=== PATIENT | female | born 2005 | race Caucasian/White ===

== ENCOUNTER 2023-02-08 12:03 | Outpatient (CLI) | payer OTHER, SELFPAY ==
--- NOTE | ~2023-02-08 | US_ITS ---
EXAMINATION: US pelvic complete w TV DATE: 02/08/2023 12:56 INDICATION: Right lower quadrant abdominal pain. TECHNIQUE: Multiple transabdominal and transvaginal sonographic images of the pelvis were obtained. COMPARISON: None. FINDINGS: TRANSABDOMINAL ULTRASOUND: The uterus measures 6.6 x 4.1 x 4.4 cm. There is no free fluid in the pelvis. TRANSVAGINAL ULTRASOUND: The endometrial complex measures 13 mm in thickness. The right ovary is not visualized. The left ovar y measures 3.0 x 1.4 x 1.6 cm. IMPRESSION: 1. Right ovary not visualized. 2. Normal uterus and left ovary. Reviewed, dictated and finalized at location A.
== END 2023-02-08 12:04 | disposition home or self-care (01) ==
PROVIDERS: PCP Family Medicine; Visit Provider Obstetrics & Gynecology Gynecology
DX: R10.31 Right lower quadrant pain (principal)
CPT/HCPCS: 76830; 76856

== ENCOUNTER 2023-02-08 18:13 | Emergency (ER) | payer OTHER, SELFPAY ==
--- NOTE | ~2023-02-08 | CT_ITS ---
EXAMINATION: CT abdomen pelvis w con DATE: 02/08/2023 19:50 INDICATION: right lower quadrant pain TECHNIQUE: Computed tomography (CT) of the abdomen and pelvis was performed with 100 mL Omnipaque-350 intravenous contrast. Automated exposure control and iterative reconstruction technique were employe d. The dose-length product was 1570.00 mGy-cm. COMPARISON: None. FINDINGS: Lower thorax: Unremarkable Liver: Diffuse fatty infiltration Biliary/Gallbladder: Gallbladder is normal. No bile duct dilation. Pancreas: No mass or duct dilation. Spleen: Normal. Adrenals:No mass. Kidneys: No mass, stone, or hydronephrosis. GI tract: Mild distal esophageal wall edema. No small or large bowel dilation. The appendix is dilate d up to 10 mm, without surrounding inflammatory change Mesentery/Peritoneum: No ascites, mass, or free air. Retroperitoneum: No mass. Pelvis: Empty urinary bladder. Normal uterus. control device in the vaginal cuff. Normal bilate ral ovaries.. Soft Tissues: Soft tissues and body wall unremarkable. Bones: No acute osseous finding. IMPRESSION: Mild esophagitis. Hepatic steatosis. Dilated appendix, without surrounding inflammatory change. This appearance may be normal for this pat ient or represent mild/early acute appendicitis. Otherwise, no acute abdominopelvic process detected. Reviewed, dictated and finalized at location K. IMPRESSION: Mild esophagitis. Hepatic steatosis. Dilated appendix, without surrounding inflammatory change. This appearance may be normal for this patient or represent mild/early acute appendicitis. Otherwise, no acute abdominopelvic process detected.
[2023-02-08 18:15] VITALS: BP 137/84; PULSE 98; RESP 17; TEMP 36.5; O2SAT 99
[2023-02-08 18:40] LABS: Basophils Percent Auto 0.4 % (0.2-1.2); Eosinophils Absolute Auto 0.1 K/mm3 (0-0.3); Eosinophils Percent Auto 0.9 % (0-4.4); Hemoglobin 14.5 g/dL (12.0-15.0); Immature Granulocyte Absolute 0.03 K/mm3 (0.00-0.031); Immature Granulocyte Percent A 0.3 % (0-0.5); Lymphocytes Absolute Auto 2.56 K/mm3 (0.9-3.2); Lymphocytes Percent Auto 26.4 % (18.3-44.2); Mean Corpuscular Hemoglobin 28.7 pg (26-34); Monocytes Absolute Auto 0.6 K/mm3 (0.1-0.6); Monocytes Percent Auto 6.1 % (2.6-8.5); Neutrophils Absolute Auto 6.4 K/mm3 (1.3-6.7); Neutrophils Percent Auto 65.9 % (45.5-73.1); Platelet Count Result 297 k/mm3 (150-375); Red Blood Count 5.06 M/mm3 (4.2-5.4); Red Cell Distribution Width 12.5 % (11.5-14.5); White Blood Count 9.7 K/mm3 (4.5-10.0)
[2023-02-08 18:51] LABS: Alanine Aminotransferase 31 U/L (6-35); Albumin Level 4.5 g/dL (3.7-5.6); Alkaline Phosphatase 69 U/L (45-116); Anion Gap 6 mmol/L (8-16); Aspartate Amino Transferase 31 U/L (14-36); Bilirubin,Total 0.4 mg/dL (0.2-1.3); Blood Urea Nitrogen 11 mg/dL (8-21); Calcium 9.2 mg/dL (8.9-10.7); Carbon Dioxide 25 mmol/L (22-30); Chloride 106 mmol/L (98-107); Estimated CRCL calculation 124 ml/min; Estimated Glomerular Filt Rate > 60; Glucose 90 mg/dL (65-110); Lipase 63 U/L (23-300); Sodium 137 mmol/L (134-143)
[2023-02-08 20:18] LABS: Appearance Urine Clear (Clear); Bacteria Urine None Seen /hpf; Bilirubin Urine Negative (Negative); Blood Urine Negative (Negative); Color Urine Yellow (Yellow); Glucose Urine UA Negative (Negative); Ketones Urine Trace mg/dL (Negative); Leukocyte Esterase Ur Negative LEU/UL (Negative); Nitrate Urine Negative (Negative); Non Pathogenic Casts 0-2; Protein Urine Trace mg/dL (Negative); Specific Grav Ur 1.028 (1.001-1.035); Squamous Epithelial Cell Urine Few /hpf (Few); WBC Urine 0-5 /hpf
[2023-02-08 20:23] LABS: Add Urine Microscopic? YES
--- NOTE | 2023-02-08 22:37 | ED.GENADULT ---
HPI - General Adult General Chief complaint: Abdominal Pain Stated complaint: RLQ abdominal pain Time Seen by Provider: 02/08/23 19:16 History of Present Illness HPI narrative: Patient is a 17-year-old female who presents the emergency department with chief complaint of right lower quadrant abdominal pain. Patient reports that she was seen by her CANAL TENDER today and had an ultrasound done that was unable to visualize the right ovary. The patient was sent to the emergency department to evaluate for possible appendicitis as she was having right lower quadrant pain. Patient denies fever denies anorexia reports no pain with getting bumps in her vehicle. Related Data Allergies Allergy/AdvReac Type Severity Reaction Status Date / Time No Known Allergies Allergy Unverified 02/08/23 18:13 Review of Systems Review of Systems: A 10 system review of systems was completed on the patient and is negative except for what is stated in the HPI. Nursing and ancillary documentation was reviewed. Exam Narrative: GENERAL: Well-appearing, well-nourished, and in no acute distress. HEAD: Normocephalic, atraumatic. EYES: PERRLA and EOMI. ENT: Nares clear, no rhinorrhea or epistaxis. Mucous membranes moist. NECK: Supple. CHEST: Clear to auscultation. No respiratory distress. HEART: Regular rate and rhythm. No murmur heard. Normal peripheral pulses. ABDOMEN: Soft, mild tenderness to palpation in the right lower quadrant, nondistended, normal active bowel sounds. EXTREMITIES: Normal range of motion. No edema. SKIN: Warm, dry, no rash. NEURO: No focal deficits. Alert and oriented x3. PSYCH: Normal mood and affect. Course Vital Signs Vital signs: Vital Signs Temperature 36.5 C 02/08/23 18:15 Pulse Rate 98 02/08/23 18:15 Respiratory Rate 17 02/08/23 18:15 Blood Pressure 137/84 02/08/23 18:15 Pulse Oximetry 99 02/08/23 18:15 Oxygen Delivery Room Air 02/08/23 18:15 Temperature 36.5 C 02/08/23 18:15 Pulse Rate 98 02/08/23 18:15 Respiratory Rate 17 02/08/23 18:15 Blood Pressure 137/84 02/08/23 18:15 Pulse Oximetry 99 02/08/23 18:15 Oxygen Delivery Room Air 02/08/23 18:15 Medical Decision Making MDM Narrative Medical decision making narrative: Differential diagnosis includes appendicitis, ovarian cyst, generalized abdominal pain Laboratory studies were obtained which showed a normal set of electrolytes CBC was within normal limits urinalysis showed evidence of UTI CT scan showed a slightly enlarged appendix without secondary findings of appendicitis Case was discussed with Dr. Adams who is on-call for general surgery who recommended starting the patient on Augmentin and having the patient return to the emergency department if her pain worsens Vital Signs Vital Signs: Vital Signs Temperature 36.5 C 02/08/23 18:15 Pulse Rate 98 02/08/23 18:15 Respiratory Rate 17 02/08/23 18:15 Blood Pressure 137/84 02/08/23 18:15 Pulse Oximetry 99 02/08/23 18:15 Oxygen Delivery Room Air 02/08/23 18:15 Temperature 36.5 C 02/08/23 18:15 Pulse Rate 98 02/08/23 18:15 Respiratory Rate 17 02/08/23 18:15 Blood Pressure 137/84 02/08/23 18:15 Pulse Oximetry 99 02/08/23 18:15 Oxygen Delivery Room Air 02/08/23 18:15 Lab Data 02/08/23 18:24 02/08/23 18:24 Labs: Lab Results 02/08/23 02/08/23 Range/Units 18:24 19:35 WBC 9.7 (4.5-10.0) K/mm3 RBC 5.06 (4.2-5.4) M/mm3 Hgb 14.5 (12.0-15.0) g/dL Hct 44.0 (37.0-47.0) % MCV 87.0 (80-100) fl MCH 28.7 (26-34) pg MCHC 33.0 (32-36) g/dl RDW 12.5 (11.5-14.5) % Plt Count 297 (150-375) k/mm3 MPV 11.0 H (7.4-10.4) fl Immature Gran % (Auto) 0.3 (0-0.5) % Neut % (Auto) 65.9 (45.5-73.1) % Lymph % (Auto) 26.4 (18.3-44.2) % [place] % (Auto) 6.1 (2.6-8.5) % Eos % (Auto) 0.9 (0-4.4) % Baso % (Auto) 0.4 (0.2-1.2) % Lymph # (Auto)
== END 2023-02-08 23:18 | disposition home or self-care (01) ==
PROVIDERS: Emergency Medicine; Emergency Provider Emergency Medicine; PCP Family Medicine
DX: R10.31 Right lower quadrant pain (principal)
CPT/HCPCS: 36415; 74177; 76830; 76856; 80053; 81001; 81025; 83690; 85025; 99284; Q9967

== ENCOUNTER 2023-05-10 15:00 | Outpatient (RCR) | payer OTHER, SELFPAY ==
--- NOTE | 2023-03-07 14:33 | OPREHPOC ---
Outpatient Therapy Plan of Care This is a Multidisciplinary Plan of Care that may contain components documented by all disciplines (PT, OT, and ST.) PT Problem 1 PT Problem #1 Knowledge Deficit PT Goal 1 Goal 1. Patient will perform independent HEP Target Visit 5 PT Problem 2 PT Problem #2 Pain PT Goal 1 Goal 1. Patient will tolerate 1 finger circumferential pelvic floor stretch with pain no higher than 3/10 to allow for pap smear, ultrasound, and other medical management Target Visit 5 PT Problem 3 PT Problem #3 Impaired Functional ADLs PT Goal 1 Goal 1. Patient able to attend class and work with pain no higher than 4/10 Target Visit 5
--- NOTE | 2023-03-07 14:33 | PTOPEVAL1 ---
Assessment and note entered by Susan Montgomery DPT Evaluation Information Assessment Status Evaluation Subjective Information Pt reports prior pelvic floor PT. Reports her back is hurting and has a lot of pelvic pain. Significant difficulty tolerating tampons or vaginal ultrasound. Highest pain recently 9/10 and lowest 5/10. Pt voids 4 times a day, maybe 1 time at night. Incontinence almost every day, a few drops at a time but unsure what causes it. Denies pain with urination. Sometimes has trouble initiating urine stream. BM usually one time a day without pain. Pt has never been . When pain is high she has trouble even walking, unable to use tampons at her normal amount before and has had trouble keeping her nuva ring in. 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 No return to MD scheduled. Patient goal: not be in constant pain. Diagnosed with PCOS. Reported Pain Level Pain Score 6: Self Report Assessment PT Clinical Summary The patient is presenting to skilled therapy with a significant history of pelvic pain. She presents with decreased core and hip strength, and increased/painful pelvic floor muscle tone which are contributing to her pain and difficulty tolerating pelvic exams and tampon use and attending class and work. She will highly benefit from therapy to address these impairments in order to reduce pain and dysfunction. Plan of Care Interventions Electrical Stimulation,Gait Training,Hot Pack/Cold Pack,Manual Therapy,Neuro Re-education,Patient/ Caregiver Education,Therapeutic Activities, Therapeutic Exercise PT Services Indicated Yes Treatment Frequency and 1 visit a week for 4 visits Duration These treatments will address the objective and functional deficits as defined above. The patient will be advanced safely and appropriately in order for the patient to progress towards his/her prior level of function. Additional exercises will be introduced and as well as a comprehensive home exercise program upon discharge, if needed, ?to ensure carryover of functional gains achieved in the clinic. This treatment plan has been reviewed and agreement upon by the patient.
--- NOTE | 2023-03-19 08:51 | PCPTNOTE ---
Patient's appointment on 03/15/23 was canceled due to therapist being out of the office.
--- NOTE | 2023-04-04 13:54 | OPREHPOC ---
Outpatient Therapy Plan of Care This is a Multidisciplinary Plan of Care that may contain components documented by all disciplines (PT, OT, and ST.) PT Problem 1 PT Problem #1 Knowledge Deficit PT Goal 1 Goal 1. Patient will perform independent HEP Target Visit 9 Progress Partially Met PT Problem 2 PT Problem #2 Pain PT Goal 1 Goal 1. Patient will tolerate 1 finger circumferential pelvic floor stretch with pain no higher than 3/10 to allow for pap smear, ultrasound, and other medical management Target Visit 9 Progress Partially Met PT Problem 3 PT Problem #3 Impaired Functional ADLs PT Goal 1 Goal 1. Patient able to attend class and work with pain no higher than 4/10 Target Visit 9 Progress Partially Met
--- NOTE | 2023-04-04 13:54 | PTOPPROG ---
Assessment and note entered by Susan Montgomery DPT Evaluation Information Assessment Status Progress Subjective Information Pt reports she is noticing some improvements in her pain, her hips and back feel better especially with walking. Highest pain in the last week 5/10 and lowest 0/10. Feels that continuing therapy will be helpful. Follows up with MD in May. Assessment PT Clinical Summary The patient has made some progress in therapy and reports her pain overall has decreased especially with walking. She demonstrates improved core strength and decreased pain with pelvic floor palpation and is more fully able to tolerate exam. Due to her progress but continued pain, she will benefit from further therapy to progress toward full function and reduce pain. Plan of Care Interventions Check Out for Orthotic/Pr,Hot Pack/Cold Pack, Manual Therapy,Neuro Re-education,Patient/ Caregiver Education,Therapeutic Activities, Therapeutic Exercise PT Services Indicated Yes Treatment Frequency and 1 time a week for 4 visits Duration These treatments will address the objective and functional deficits as defined above. The patient will be advanced safely and appropriately in order for the patient to progress towards his/her prior level of function. Additional exercises will be introduced and as well as a comprehensive home exercise program upon discharge, if needed, ?to ensure carryover of functional gains achieved in the clinic. This treatment plan has been reviewed and agreement upon by the patient.
--- NOTE | 2023-05-10 15:40 | OPREHPOC ---
Outpatient Therapy Plan of Care This is a Multidisciplinary Plan of Care that may contain components documented by all disciplines (PT, OT, and ST.) PT Problem 1 PT Problem #1 Knowledge Deficit PT Goal 1 Goal 1. Patient will perform independent HEP Target Visit 11 Progress Partially Met PT Problem 2 PT Problem #2 Pain PT Goal 1 Goal 1. Patient will tolerate 1 finger circumferential pelvic floor stretch with pain no higher than 3/10 to allow for pap smear, ultrasound, and other medical management Target Visit 11 Progress Partially Met PT Problem 3 PT Problem #3 Impaired Functional ADLs PT Goal 1 Goal 1. Patient able to attend class and work with pain no higher than 4/10 Target Visit 11 Progress Partially Met
--- NOTE | 2023-05-10 15:40 | PTOPPROG ---
Assessment and note entered by Susan Montgomery DPT Evaluation Information Assessment Status Progress Subjective Information Highest pain in the last week 6/10 and lowest 0/10 . Feels improvement with therapy, her pain is not as high when she has it and her pain is not as widespread through her legs and back. Is also now better able to pinpoint a reason why her pain increases when it does. Reports today she is feeling more pain, has been busy and stressed about school/family issues and has been having more panic attacks. Also notes she has not taken her control in a few days which may have also increased her pain. Assessment PT Clinical Summary The patient has continued to make some progress in therapy and reports her pain intensity has decreased and it is not as widespread. She demonstrates improved LE strength. She continues to display significant pelvic floor muscle pain and increased tone and will benefit from further therapy to reduce pain and improve function at work, home, and school. Plan of Care Interventions Electrical Stimulation,Hot Pack/Cold Pack,Manual Therapy,Neuro Re-education,Patient/Caregiver Education,Therapeutic Activities,Therapeutic Exercise PT Services Indicated Yes Treatment Frequency and 1 time a week for 4 visits Duration These treatments will address the objective and functional deficits as defined above. The patient will be advanced safely and appropriately in order for the patient to progress towards his/her prior level of function. Additional exercises will be introduced and as well as a comprehensive home exercise program upon discharge, if needed, ?to ensure carryover of functional gains achieved in the clinic. This treatment plan has been reviewed and agreement upon by the patient.
--- NOTE | 2023-05-24 10:42 | PCPTNOTE ---
Patient called to cancel appointment 05/24/23 due to personal conflict.
--- NOTE | 2023-05-31 08:50 | PCPTNOTE ---
Patient cancelled appointment 05/31/23 due to class.
--- NOTE | 2023-06-04 14:58 | PCPTNOTE ---
This treatment is being continued on visit number [id number]. Please see documentation on both accounts to view progress. Completed interventions, outcomes, and problems have been marked as Inactive to facilitate the copying of the Care plan routine for recurring accounts.
--- NOTE | 2023-07-12 11:10 | PTOPDC ---
Assessment and note entered by Susan Montgomery, DPT Evaluation Information Assessment Status Discharge - Pt Not Present Subjective Information - Assessment PT Clinical Summary Patient has not attended therapy since 05/10/23. She will be discharged this date and will need a new script to resume therapy in the future. Plan of Care PT Services Indicated No
== END 2023-06-04 09:14 | disposition home health service (06) ==
LOC: ANHPT 15:00
PROVIDERS: PCP Family Medicine; Visit Provider Obstetrics & Gynecology Gynecology
DX: R10.2 Pelvic and perineal pain (principal)
CPT/HCPCS: 97110; 97112; 97140; 97162; 97530; 99199

== ENCOUNTER 2023-07-05 13:43 | Outpatient (CLI) | payer OTHER, SELFPAY ==
[2023-07-05 14:08] LABS: Hematocrit 38.9 % (37.0-47.0); Hemoglobin 12.6 g/dL (12.0-15.0); Mean Corpuscular HGB Conc 32.4 g/dl (32-36); Mean Corpuscular Hemoglobin 28.1 pg (26-34); Mean Corpuscular Volume 86.8 fl (80-100); Mean Platelet Volume 11.2 fl (7.4-10.4); Platelet Count Result 311 k/mm3 (150-375); Red Blood Count 4.48 M/mm3 (4.2-5.4); Red Cell Distribution Width 12.1 % (11.5-14.5); White Blood Count 9.5 K/mm3 (4.5-10.0)
== END 2023-07-05 13:44 | disposition home or self-care (01) ==
LOC: ANHLAB 13:44
PROVIDERS: PCP Family Medicine; Visit Provider Student in an Organized Health Care Education/Training Program
DX: Z01.818 Encounter for other preprocedural examination (principal); E28.2 Polycystic ovarian syndrome
CPT/HCPCS: 36415; 85027; 86850; 86900; 86901

== ENCOUNTER 2023-07-11 00:35 | Day surgery (SDC) | payer OTHER, SELFPAY ==
[2023-07-03 09:28] VITALS: BMI 42.7
--- NOTE | 2023-07-03 09:35 | PC.NURSE ---
Addendum entered by Dominique Scott RN 07/04/23 09:12: PLEASE TAKE YOUR SERTRALINE AND YOUR CONTROL PILL MORNING OF SURGERY. Original Note: Report to the Outpatient Waiting Room, entrance under the green pavilion located off [facility], at time 12:00pm on date 07-11-23. Planned Procedure Time: 2:00pm. Time changes happen often and if your time is changed the preop area will call you the afternoon before. - You and your visitor will be asked to self-screen and do not enter if you have any COVID symptoms. - A mask is optional within the hospital at this time. Patients may have clear liquids (water, carbonated beverages, clear teas, apple juice) until 3 hours prior to surgery (11:00am) with a maximum of 20 ounces. - No food from midnight until time of surgery Take the following medications with a SIP of water the morning of surgery: n/a DO NOT STOP ANY OF YOUR OTHER PRESCRIPTION MEDICATIONS PRIOR TO SURGERY EXCEPT THE FOLLOWING Medications to discontinue per physician: Magnesium Date to take last dose 07-07-23 Please no make-up, nail vincentian, hairspray, perfume, deodorant, or body powder the day of surgery. No jewelry (including any body piercings) or valuables the day of surgery, leave them at home. Please take a shower or bath the night before, or the morning of, surgery with an antibacterial soap. Wear comfortable, loose fitting clothing. - Jewelry must be removed prior to entering the operating room. Rings and piercings that are not removed may be cut off. - The hospital will not accept responsibility for valuables. - Please leave all valuables, including medications, at home the day of surgery. If you are going home after surgery, a licensed commercial trailer truck driver must drive you home. - NO public transportation without another adult if you receive anesthesia. - We recommend that an adult stay with you for 24 hours following discharge. - We also recommend that you do not drive, make important decision, drink alcoholic beverages, or take any drugs that were not prescribed by your health care provider for at least 24 hours after your discharge time. Follow any additional instructions given to you from your surgeon. If you or anyone in your household have experienced Covid symptoms in the past week, please notify your surgeon or the nurse liaison at the phone number below for possible testing. Telephone instructions given to PATIENT and asked if any additional questions and then verbalized understanding. Patient advised to call surgeon office or pre surgery nurse liaison [phone] if any additional questions.
[2023-07-11] VITALS (8 sets, daily range): BP systolic 91–140; BP diastolic 58–89; PULSE 82–104; RESP 16–23; TEMP 36.1–36.2; O2SAT 97–100
--- NOTE | 2023-07-11 07:42 | PM.IMHP ---
H&P: HPI History of Present Illness Date/Time: 07/11/23 07:42 Chief Complaint: Pelvic pain Dysmenorrhea Narrative: 17 female who presents for exploratory laparoscopy for pelvic pain and dyspnea. Patient has a long history of pelvic pain. Patient states she was diagnosed with PCOS. Patient was recently started on oral contraceptive pills. Patient has had minimal improvement pelvic pain. Patient elects to proceed with exploratory laparoscopy to evaluate for endometriosis Review of Systems Cardiovascular: Cardiovascular: Denies chest pain, Denies leg edema, Denies palpitations, Denies dyspnea and Denies dyspnea on exertion Respiratory: Respiratory: Denies cough, Denies dyspnea and Denies dyspnea on exertion Gastrointestinal: Gastrointestinal: Denies abdominal pain, Denies constipation, Denies diarrhea, Denies nausea and Denies vomiting Genitourinary: Genitourinary: Denies hematuria, Denies urinary frequency, Denies dysuria, Denies pelvic pain, Denies urinary incontinence and Denies vaginal discharge Neurologic: Reports system reviewed and no additional complaints, except as documented Psychiatric: Psychiatric: Reports no additional psychiatric complaints Endocrine: Endocrine: Denies palpitations [facility] Past Medical History Medical History PCOS (polycystic ovarian syndrome) Family History Family History Father Diabetes mellitus Grandparent Diabetes mellitus Hypertension Heart disease Social History Social History Smoking status: Never smoker Second hand tobacco smoke exposure: No Alcohol intake: never Substance use: never Substance use type: does not use Lack of Transportation: No Lack of Food: Never True Current Housing: I Have Housing Concerned About Future Housing: No Difficulty Paying Gas/Electric Bills: No Difficulty Paying for Meds: No Currently Unemployed: No Education: High School Diploma/GED Difficulty w/ Childcare or Family Care: No Living arrangements: with roommate(s) Occupation/Education: occupation Gender identity (if verbalized by the patient): Female Sexual Orientation (if Verbalized by the Patient): Straight or Heterosexual Spiritual care concerns: No Meds Home Medications and Allergies Home Medications Medication Instructions Recorded Confirmed Type drospirenone 3 mg-ethinyl 1 tablet PO DAILY #84 tabs 03/14/23 07/03/23 Rx estradiol 0.03 mg tablet (Samara (28)) sertraline 100 mg tablet 100 mg PO DAILY 06/06/23 07/03/23 History magnesium 200 mg tablet 200 mg PO HS 07/03/23 07/03/23 History Allergies Allergy/AdvReac Type Severity Reaction Status Date / Time No Known Allergies Allergy Verified 07/03/23 09:29 Exam Const: General: no acute distress Eyes: EOM: EOMs intact bilaterally Neck: Neck: supple Thyroid: thyroid normal Chest: Breast/axilla inspection: normal inspection of the breasts Breast/axilla palpation: normal palpation of the breasts, normal palpation of the axillae and no axillary lymphadenopathy Resp: Effort & Inspection: normal respiratory effort Auscultation: clear to auscultation bilaterally Cardio: Rate: regular rate Rhythm: regular rhythm GI: Inspection: non-distended GI Palp: Yes Soft to palpation, No Tenderness to palpation present (GI) and No Guarding due to palpation present (GI) Auscultation: normal bowel sounds : General: No bladder normal to palpation External Female Exam: normal external appearance Speculum Exam - Vagina: normal vaginal discharge and No vaginal bleeding Speculum Exam - Cervix: nontender Bimanual exam- vagina & uterus: No bladder normal to palpation and No Cervical tenderness present OB/external & speculum: No vaginal bleeding Skin: General skin exam: normal color and no rashes or lesions noted Neuro:
[2023-07-11] MEDS: ACETAMINOPHEN 500 MG TABLET 1000 MG PO (12:22)
--- NOTE | 2023-07-11 12:39 | P.PNAN_ITS ---
Anes - Initial Pre Proc Eval Procedure: Operation Date: 07/11/23 14:00 Proposed Procedures p Diagnostic Laparoscopy with Possible Lysis of Adhesions - Yaniv Torres MD Date/Time: 07/11/23 12:39 Surgeon: Yaniv Torres MD Pre Op Diagnosis: pelvic pain Patient Data Age: 17 Gender: F Height: 1.63 m Weight: 113 kg Allergies Allergy/AdvReac Type Severity Reaction Status Date / Time No Known Allergies Allergy Verified 07/11/23 12:20 Home Medications Medication Instructions Recorded Confirmed Type drospirenone 3 mg-ethinyl 1 tablet PO DAILY #84 tabs 03/14/23 07/11/23 Rx estradiol 0.03 mg tablet (Samara (28)) sertraline 100 mg tablet 100 mg PO DAILY 06/06/23 07/11/23 History magnesium 200 mg tablet 200 mg PO HS 07/03/23 07/11/23 History Patient hx anesthesia problems: none Family hx anesthesia problems: none Results Review: All pre-operative results and documents have been reviewed as part of the pre- operative evaluation. [facility] Past Medical History Medical History PCOS (polycystic ovarian syndrome) Family History Family History Father Diabetes mellitus Grandparent Diabetes mellitus Hypertension Heart disease Social History Social History Smoking status: Never smoker Second hand tobacco smoke exposure: No Alcohol intake: never Substance use: never Substance use type: does not use Lack of Transportation: No Lack of Food: Never True Current Housing: I Have Housing Concerned About Future Housing: No Difficulty Paying Gas/Electric Bills: No Difficulty Paying for Meds: No Currently Unemployed: No Education: High School Diploma/GED Difficulty w/ Childcare or Family Care: No Living arrangements: with roommate(s) Occupation/Education: occupation Gender identity (if verbalized by the patient): Female Sexual Orientation (if Verbalized by the Patient): Straight or Heterosexual Spiritual care concerns: No Anes - Eval Final PreProcedure Day of Procedure 07/11/23 12:39 Patient weight: morbidly obese Heart: regular rate and rhythm Lungs: clear to auscultation Airway: Mallampati scale class 1 Neurological: alert and oriented Last oral intake: >/= 8 hours ASA classification: III Emergent: no Anesthetic plan: proceed Anesthesia type and monitoring: general ETT and standard monitoring Results Review: All pre-operative results and documents have been reviewed as part of the pre- operative evaluation. Informed Consent: The patient's anesthetic plan and its attendant risks and benefits were discussed with the patient/family/POA. Questions were solicited and answers provided to the satisfaction of the patient/family/POA.
[2023-07-11] MEDS: KETOROLAC 15 MG/ML VIAL (*BKC) IV PUSH (12:49)
--- NOTE | 2023-07-11 13:10 | WPDHPUPDATE1 ---
History and Physical Update Update Date/Time: 07/11/23 13:10 History and Physical has been reviewed, including an updated exam of the patient. There are NO changes in the patient's condition. Risks, benefits, and alternatives have been discussed and questions answered. Patient agrees to proceed with procedure.
--- NOTE | 2023-07-11 13:51 | W.PM.PROC2 ---
Procedure Note - Detailed Date of Procedure 07/11/23 Pre-op Diagnosis pelvic pain Post-op Diagnosis Same Procedure Performed Diagnostic laparoscopy Peritoneal biopsy Surgeon Yaniv Torres MD Anesthesia General Indications pelvic pain Findings normal appearing uterus, normal fallopian tubes and ovaries bilaterally, 3 hyper pigmented peritoneal implants in the posterior cul-de-sac, suggestive of endometriosis Description of Procedure The patient was taken to the operating room where general endotracheal anesthesia was undertaken and found to be adequate. She was then prepped and draped in the dorsal lithotomy position and placed in adjustable stirrups. A pre-operative team brief and a time out were completed. A catheter was placed to drain the bladder. Retractors were placed placed in the vagina and the cervix was identified. A acorn uterine manipulator was placed. Attention was then turned to the abdomen which was anesthetized umbilically with injected anesthestic. A 5 mm skin incision was made in the umbilicus. A 5 mm optical trocar was then placed with direct camera visualization of the abdominal layers during placement. The trocar stylet was removed and the camera was used to verify intra-abdominal placement. CO2 insufflation was then connected and resumed. The pelvis was inspected. A suprapubic 5 mm port was placed in the standard fashion after using local anesthetic. pelvic survey was performed which showed normal pelvic anatomy. There were 3 small hyper pigmented implants in the posterior cul-de-sac. Peritoneal biopsy was obtained. Hemostasis was noted. All surgical beds were noted to be hemostatic. Sponge, lap and needle counts were correct. All skin incisions were closed with 4-0 Vicryl suture subcuticularly. The uterine manipulator was removed from the uterus. Hemostasis of the cervix was noted. The urinary catheter was removed. The patient was taken out of dorsal lithotomy position. Anesthesia was reversed. The patient was taken to the PACU. Estimated Blood Loss 5 Urine Output 25 Drains No Packing No Pathology Yes (peritoneal biopsy) Complications No immediate complications Condition Stable Disposition PACU [facility] Billing Surgery - Charge Forward: Surgery Billing
[2023-07-11] MEDS: LIDO 1%/EPINEPHRINE 1:100,000 20 ML VIAL 10 ML INFILTRATE (14:39)
[2023-07-11] MEDS: LACTATED RINGERS 1,000 ML 30 ML IV CONT (15:07)
[2023-07-11] MEDS: fentaNYL CITRATE INJ (*CRX) 100 MCG/2 ML VIAL 25 MCG IV PUSH ×4 (15:15→15:30)
[2023-07-11] MEDS: oxyCODONE HCL (*CRX) 5 MG TAB IR PO (16:24)
== END 2023-07-11 16:49 | disposition home or self-care (01) ==
PROVIDERS: PCP Family Medicine; Visit Provider Student in an Organized Health Care Education/Training Program
PROC: (CPT 49320; principal; 2023-07-11 14:00)
DX: N80.329 Endometriosis of the posterior cul-de-sac, unspecified depth (principal); E28.2 Polycystic ovarian syndrome
CPT/HCPCS: 49321; 36415; 85027; 86850; 86900; 86901; 88305; A9270; J0330; J1100; J1170; J1885; J2250; J2405; J2704; J3010; J7030; J7120

== ENCOUNTER 2023-09-03 14:01 | Outpatient (CLI) | payer OTHER, SELFPAY ==
--- NOTE | ~2023-09-03 | XR_ITS ---
EXAMINATION: XR wrist LT min 3V DATE: 09/03/2023 14:19 INDICATION: Left wrist pain TECHNIQUE: 1. Posteroanterior, ulnar deviation, oblique, and lateral views of the left wrist were obtained. 2. Dorsal palmar, oblique and lateral views of the left hand were obtained. COMPARISON: None. FINDINGS: Alignment of the left hand and wrist is normal. No fracture identified. No erosions. Joint spaces ar e normal. No focal soft tissue swelling. IMPRESSION: 1. Negative left hand and wrist radiographs. Reviewed, dictated and finalized at location L.
--- NOTE | ~2023-09-03 | XR_ITS ---
EXAMINATION: XR hand LT min 3V, XR wrist LT min 3V DATE: 09/03/2023 14:19 INDICATION: Left wrist pain TECHNIQUE: 1. Posteroanterior, ulnar deviation, oblique, and lateral views of the left wrist were obtained. 2. Dorsal palmar, oblique and lateral views of the left hand were obtained. COMPARISON: None. FINDINGS: Alignment of the left hand and wrist is normal. No fracture identified. No erosions. Joint spaces are normal. No focal soft tissue swelling. IMPRESSION: 1. Negative left hand and wrist radiographs. Reviewed, dictated and finalized at location L.
== END 2023-09-03 14:02 ==
PROVIDERS: PCP Nurse Practitioner Psychiatric/Mental Health; Visit Provider Nurse Practitioner Psychiatric/Mental Health
DX: M25.532 Pain in left wrist (principal)
CPT/HCPCS: 73110; 73130

== ENCOUNTER 2023-12-15 22:16 | Emergency (ER) | payer OTHER, SELFPAY ==
[2023-12-15 22:17] VITALS: BP 142/79; PULSE 101; RESP 16; TEMP 36.7; O2SAT 98
[2023-12-15 22:39] LABS: Basophils Percent Auto 0.3 % (0.2-1.2); Eosinophils Absolute Auto 0.3 K/mm3 (0-0.3); Eosinophils Percent Auto 3.1 % (0-4.4); Hematocrit 43.7 % (37.0-47.0); Hemoglobin 14.3 g/dL (12.0-15.0); Immature Granulocyte Absolute 0.03 K/mm3 (0.00-0.031); Immature Granulocyte Percent A 0.3 % (0-0.5); Lymphocytes Absolute Auto 2.41 K/mm3 (0.9-3.2); Lymphocytes Percent Auto 27.7 % (18.3-44.2); Mean Corpuscular HGB Conc 32.7 g/dl (32-36); Mean Corpuscular Hemoglobin 27.9 pg (26-34); Mean Corpuscular Volume 85.2 fl (80-100); Mean Platelet Volume 11.1 fl (7.4-10.4); Monocytes Absolute Auto 0.6 K/mm3 (0.1-0.6); Monocytes Percent Auto 7.2 % (2.6-8.5); Neutrophils Absolute Auto 5.3 K/mm3 (1.3-6.7); Neutrophils Percent Auto 61.4 % (45.5-73.1); Platelet Count Result 295 k/mm3 (150-375); Red Blood Count 5.13 M/mm3 (4.2-5.4); Red Cell Distribution Width 13.1 % (11.5-14.5); White Blood Count 8.7 K/mm3 (4.5-10.0)
[2023-12-15 22:51] LABS: Alanine Aminotransferase 26 U/L (6-35); Albumin Level 4.6 g/dL (3.5-5.1); Alkaline Phosphatase 78 U/L (38-126); Anion Gap 9 mmol/L (4-12); Aspartate Amino Transferase 29 U/L (14-36); Bilirubin,Total 0.4 mg/dL (0.2-1.3); Blood Urea Nitrogen 11 mg/dL (7-17); Calcium 9.3 mg/dL (8.4-10.2); Carbon Dioxide 27 mmol/L (22-30); Chloride 105 mmol/L (98-107); Estimated CRCL calculation 163 ml/min; Estimated Glomerular Filt Rate > 60; Glucose 105 mg/dL (65-110); Lipase 60 U/L (23-300); Potassium 4.1 mmol/L (3.4-5.0); Sodium 141 mmol/L (137-145)
[2023-12-15 23:12] LABS: Appearance Urine Clear (Clear); Bilirubin Urine Negative (Negative); Blood Urine Negative (Negative); Color Urine Yellow (Yellow); Glucose Urine UA Negative (Negative); Ketones Urine Negative (Negative); Leukocyte Esterase Ur Negative LEU/UL (Negative); Nitrate Urine Negative (Negative); Protein Urine Negative (Negative); Specific Grav Ur 1.021 (1.001-1.035); pH Urine 6.5 (5.0-9.0)
[2023-12-15 23:23] LABS: Add Urine Microscopic? NO
[2023-12-15] MEDS: KETOROLAC 15 MG/ML VIAL (*BKC) IV PUSH (23:55)
[2023-12-15] MEDS: SODIUM CHLORIDE 0.9% IV 2,000 ML 999 ML IV CONT (23:55)
[2023-12-15] MEDS: ACETAMINOPHEN 500 MG TABLET 1000 MG PO (23:55)
[2023-12-15] MEDS: DICYCLOMINE HCL INJ 20 MG/2 ML VIAL IM (23:56)
--- NOTE | 2023-12-16 00:07 | ED.GENADULT ---
HPI - General Adult General Chief complaint: Abdominal Pain Stated complaint: abd pain, diarrhea Time Seen by Provider: 12/15/23 22:50 History of Present Illness HPI narrative: This is a 18-year-old female presenting ED with a chief complaint of abdominal pain and diarrhea. Patient works at a daycare. One of her children came back from [place] and 2 episodes of diarrhea. She changed his diaper. A week later she developed diarrhea her own. She also has diffuse crampy abdominal pain. After 3-4 days of diarrhea she noticed that there was a small amount of blood after she had a bowel movement. Patient is denying fevers chills nausea vomiting body aches. She does have a history of hemorrhoids. no recent antibiotic use. Patient is concerned that she has traveler's diarrhea. Related Data Home Medications Medication Instructions Recorded Confirmed sertraline 100 mg tablet 100 mg PO DAILY 06/06/23 07/11/23 magnesium 200 mg tablet 200 mg PO HS 07/03/23 07/11/23 Allergies Allergy/AdvReac Type Severity Reaction Status Date / Time No Known Allergies Allergy Verified 12/15/23 22:31 [facility] Past Medical History Medical History PCOS (polycystic ovarian syndrome) Family History Family History Father Diabetes mellitus Grandparent Diabetes mellitus Hypertension Heart disease Social History Social History Smoking status: Never smoker Second hand tobacco smoke exposure: No Alcohol intake: never Substance use: never Substance use type: does not use Lack of Transportation: No Lack of Food: Never True Current Housing: I Have Housing Concerned About Future Housing: No Difficulty Paying Gas/Electric Bills: No Difficulty Paying for Meds: No Currently Unemployed: No Education: High School Diploma/GED Difficulty w/ Childcare or Family Care: No Living arrangements: with roommate(s) Occupation/Education: occupation Gender identity (if verbalized by the patient): Female Sexual Orientation (if Verbalized by the Patient): Straight or Heterosexual Spiritual care concerns: No Exam Narrative: APPEARANCE: No apparent distress. Head: atraumatic. EYES: EOMI, NOSE: Atraumatic NECK: Trachea midline RESPIRATORY: No increased rate of breathing CARDIOVASCULAR: RRR, ABDOMINAL: soft nontender no guarding or rebound, no blood on digital rectal exam, no anal fissures or external hemorrhoids MUSCULOSKELETAl: No obvious deformities NEURO: Alert. Moving 4/4 extremities SKIN:: Warm, dry. Normal color PSYCHIATRIC: Normal affect Course Vital Signs Vital signs: Vital Signs Temperature 98.1 F 12/15/23 22:17 Pulse Rate 101 H 12/15/23 22:17 Respiratory Rate 16 12/15/23 22:17 Blood Pressure 142/79 H 12/15/23 22:17 Pulse Oximetry 98 12/15/23 22:17 Oxygen Delivery Room Air 12/15/23 22:17 Temperature 98.1 F 12/15/23 22:17 Pulse Rate 101 H 12/15/23 22:17 Respiratory Rate 16 12/15/23 22:17 Blood Pressure 142/79 H 12/15/23 22:17 Pulse Oximetry 98 12/15/23 22:17 Oxygen Delivery Room Air 12/15/23 22:17 Medical Decision Making [facility] Narrative Medical decision making narrative: -Course: 18-year-old female presenting with 5 days of diarrhea. Abdominal exam is benign. No blood on digital rectal exam. Suspect internal hemorrhoids as the cause of her minimal rectal bleeding. No fevers or white count. patient given fluids, pain control, antinausea meds with improvement. patient is concerning that she now has traveler's diarrhea exposure to when her children at daycare. Patient be discharged with ondansetron, cipro and Bentyl. Given primary care follow-up. Return precautions for fevers, severe abdominal pain, intractable nausea vomiting or worsening condition. -DDX includes but is not limited to:
[2023-12-16 01:46] VITALS: BP 138/70; PULSE 85; RESP 16; O2SAT 97
[2023-12-16] MEDS: CIPROFLOXACIN 250 MG TABLET 750 MG PO (02:20)
== END 2023-12-16 02:22 | disposition home or self-care (01) ==
PROVIDERS: Emergency Provider Emergency Medicine; PCP Nurse Practitioner Psychiatric/Mental Health
DX: R19.7 Diarrhea, unspecified (principal)
CPT/HCPCS: 36415; 80053; 81003; 81025; 83690; 85025; 96361; 96372; 96374; 99284; A9270; J0500; J1885; J7030

== ENCOUNTER 2024-11-06 21:28 | Emergency (ER) | payer OTHER, SELFPAY ==
--- OUTSIDE RECORDS SUMMARY | 2024-11-06 21:30 | XMS_ITS | Clinical Summary ---
Author Organization [facility] Address [address] [place] [address] Care Team Providers Care Program Lead Name Role Phone Unavailable Primary Care Provider Unavailabl e Source Comments [facility],non-owned Affiliates and Associated Physician Practices is amultiple site organization consisting of ambulatory clinics and hospital sitesin [place], [place], [place] and [place]. This disclosure is being madepursuant to the Care Everywhere program and may not contain all information available regarding this patient. Last updated 18.[facility] Allergies No known active allergies Medications * Be aware that medications may not be up to date on this document. Alwaysverify current medications with the patient. medroxyPROGESTER one (DEPO-PROVERA) 150 MG/ML vial Inject into muscle once Active Social History Tobacco Use Types Packs/Day Years Used Date Smoking Tobacco: Never Assessed Comments No Sex and Gender Information Value Date Recorded Sex Assigned at Not on file Legal Sex Female 7:28 AM [employer] Gender Identity Not on file Sexual Orientation Not on file Last Filed Vital Signs Vital Sign Reading Time Taken Comments Blood Pressure 118/70 01/25/2019 2:11 PM CDT Pulse 96 01/25/2019 2:11 PM CDT Temperature 37.1 C (98.7 F) 01/25/2019 2:11 PM CDT Respiratory Rate - - Oxygen Saturation 99% 01/25/2019 2:11 PM CDT Inhaled Oxygen Concentration - - Weight 79.8 kg (176 lb) 01/25/2019 2:11 PM CDT Height 162.6 cm (5' 4 ) 01/25/2019 2:11 PM CDT Body Mass Index 30.21 01/25/2019 2:11 PM CDT Plan of Treatment Health Maintenance Due Date Last Done Comments PAP SMEAR 2003 HIV SCREENING 08/25/2018 HPV VACCINE (1 - 3-dose series) 08/25/2018 CHLAMYDIA/GONORRHEA SCREENING 2019 MENINGOCOCCAL (Group B) VACCINE SHARED DECISION-MAKING (1 of 2 - Standard) 2019 HEPATITIS C SCREENING 08/21/2021 DTAP/TDAP/TD VACCINES (1 - Tdap) 08/25/2022 HEPATITIS B VACCINE (1 of 3 - 19+ 3-dose series) 08/25/2022 COVID-19 VACCINE (1 - 2023-2 5 season) 2024 DEPRESSION SCREENING 06/24/2024 INFLUENZA VACCINE (Season Ended) 2025 05/25/2020, 06/27/2019, 04/28/2015 ZOSTER VACCINE (1 of 2) 08/25/2053 HIB VACCINE Aged Out No longer eligi ble based on patient's age to complete this topic MENINGOCOCCAL GROUPS A/C/Y/W VACCINE Aged Out No longer eligible b ased on patient's age to complete this topic PNEUMOCOCCAL VACCINE Aged Out No long er eligible based on patient's age to complete this topic Insurance [facility] SELF PAY NO INSURANCE Member Subscriber Plan / Payer (Ef fective for All Dates) Name:Amanda Pardo Member ID:Not on file Relation to Subscriber:Not on file Name:AMANDA PARDO Subscriber ID:Not on file Address: [address] [place] [address] [place] [address] Payer ID:Not on file Group ID:Not on file Type:Self Pay Address: [place], [place]
--- OUTSIDE RECORDS SUMMARY | 2024-11-06 21:30 | XMS_ITS | Continuity of Care Document ---
Author Organization [facility] Address [address] [place] [address] Phone Care Team Providers Care Claim Administrator Name Role Phone Nilson Cr MD Unavailable Unavailable Allergies, Adverse Reactions, Alerts Substance Reaction Status Criticality No Known allergies Procedures Procedure Date Eye Exam, New Patient Advance Directives Directive Yes / No Effective Date File Name Resuscitation Not Answered N/A N/A Life Support Not Answered N/A N/A Intubation Not Answered N/A N/A Antibiotics Not Answered N/A N/A IV Fluid Support Not Answered N/A N/A Tube Feed Not Answered N/A N/A Other Directive N/A N/A WARNING:The information contained in this section is historical and is provided for information only and does not constitute a legal document or any assurance that the information is still accurate. Please verify the information with the fontenot of the legal document before using it for clinical purposes. Encounters Encounter Description Practice Location Reason(s) For Visit Diagnoses Date Provider Providers Copied on Encounter [facility], [address], [place], [place], [id number], [place] tel:[phone] [place] [facility] [place] [address] Shaye Devine. [address] [facility], [facility] [place], [place], [id number], [place]. tel:[phone] Referring Provider: Nilson Dozier [address] [place], [address] . tel:[phone] Family History Family Member Type Diagnosis Age At Onset Father Problem (finding) diabetes armanii balajis in first degree relative Payers Payer name Insurance type Covered libertarian ID Foster malave(s) [place] [id number] Social History Type Description Quantity Date Captured Comments Alcohol Use Details No Caffeine Use Details No Tobacco Use Status No Information Smoking Status No Information Sex Female Chief Complaint And Reason For Visit No Information Reason For Referral Reason For Referral No Information History Of Present Illness Encounter Date Complaint History Of Prese nt Illness No Information Functional Status Date Functional Assessmen t No Information Instructions Date Instruction Additional Infor blancaion - prn Related to Myopi a minimal myope-glasse s optional - glasses optional Educational materials provided to patient. Related to Myopia Assessments Type Assessment Date No Information Patient Care Teams Name Effective Dates (start - stop) Status Members No Information
--- OUTSIDE RECORDS SUMMARY | 2024-11-06 21:30 | XMS_ITS | Referral Summary ---
Author Organization [facility] [address] Address [address] [place] [address] Phone Care Team Providers Care Chief Controller Station Name Role Phone Shyann Ryan MD Primary Care Provider Allergies No known active allergies Medications sertraline (ZOLOFT) 100 mg tablet Take 1 tablet (100 mg total) by mouth daily 3 Active drospirenone-et hinyl estradioL () 3-0.03 mg per tablet Take 1 tablet by mouth daily Active fluticasone propionate (FLONASE) 50 mcg/actuation nasal spray Administer 2 sprays into each nostril daily 1 each 4 4 Active meclizine (ANTIVERT) 12.5 mg tablet Take 1 tablet (12.5 mg total) by mouth 3 (three) times a day as needed for dizziness 90 tablet 4 Active Active Problems Problem Noted Date Diagnosed Date Benign paroxysmal positional vertigo 07/23/2023 Assessment & Plan (07/25/2023 10:44 AM MARKETING MANAGER HEALTH COMMUNICATIONS): Symptoms intermittently for 2 weeks with associated fatigue. See HPI for details. Admits dizziness with EOMs but no nystagmus noted. She is otherwise neurologically intact, no other acute findings on exam. CMP and CBC from yesterday were unremarkable, will add thyroid cascade today. Called network Reference lab to add tests. Differentials include BPPV, Meniere's, eustachian tube dysfunction, migraine, neuritis, ICH, DM, autoimmune disorders, or psychological cause with BPPV being the most likely. Rxd flonase and meclizine as instructed. Stay hydrated. Keep follows with [facility] to manage PCOS. Other fatigue 07/23/2023 Assessment & Plan (07/25/2023 10:45 AM MARKETING MANAGER HEALTH COMMUNICATIONS): Symptoms intermittently for 2 weeks with associated dizziness. See HPI for details. Admits dizziness with EOMs but no nystagmus noted. She is otherwise neurologically intact, no other acute findings on exam. CMP and CBC from yesterday were unremarkable, will add thyroid cascade today. Called network Reference lab to add tests. Differentials include BPPV, Meniere's, eustachian tube dysfunction, migraine, neuritis, ICH, thyroid disease, DM, autoimmune disorders, or psychological cause with BPPV being the most likely. Rxd flonase and meclizine as instructed. Stay hydrated. Keep follows with [facility] to manage PCOS. Cutaneous abscess 06/21/2023 Assessment & Plan (06/21/2023 5:34 PM MARKETING MANAGER HEALTH COMMUNICATIONS): Furuncle left check Culture collected Keep area clean with soap and water and dry Keflex 500 mg q.i.d. x7 days. Risks/benefits and alternatives discussed Follow-up 1 week as needed Shoulder weakness 01/22/2023 Assessment & Plan (01/22/2023 4:49 PM CDT): Acute. Plain films normal. Pain resolved. DDx:Partial tear - referred to physical therapy for evaluation and stretch and strengthening plan. - F/u 4-6 weeks prn for re-evaluation - Consider advanced imaging if not improved Acute pain of right shoulder 09/27/2022 Assessment & Plan (10/10/2022 9:57 AM CDT): R shoulder pain and exam as noted above. Positive neers test, negative empty can. Likely rotator cuff strain. Will order XR to r/o structural changes. REFER to PT for further assessment and treatment. Will rx Meloxicam as directed. Tylenol if needed for breakthrough pain. Heat/ice as tolerated. Follow in 6 weeks, sooner if needed. Assessment & Plan (09/27/2022 3:44 PM CDT): Acute problem, present times about 5 days Physical examination as documented - no signs/symptoms of serious illness noted Suspect likely MSK strain Recommended conservative measures at this time in the setting of relatively well maintained strength/functional ability - patient agreeable to plan NEXT STEPS: Patient to call in 2 weeks with an update on condition. If NO improvement, imaging (US and/or Xray), as well as referral to PT would be warranted. MRI pending US results. Orders for AMS STAFF to arrange None at this time Orders for Amanda Pardo to arrange Start Medrol dose pack as prescribed - complete course, take with food in the morning to prevent stomach upset and insomnia Start tizanidine as needed Start OTC ibuprofen or naproxen as needed for pain and inflammation Can take acetaminophen (Tylenol) in addition to above pain medications Consider ice/heat as needed Continue massage as needed Research and perform exercises/stretches for neck pain and shoulder pain Continue monitoring symptoms - report persistent or worsening symptoms to the office or go to ER Call office in 2 weeks with an update on condition - will consider imaging (US and/or Xray) and PT referral Follow up as scheduled with Dr. Ryan or sooner if necessary Neck pain on right side 09/27/2022 Assessment & Plan (09/27/2022 3:45 PM CDT): Acute problem, present times about 5 days Physical examination as documented - no signs/symptoms of serious illness noted Suspect likely MSK strain Recommended conservative measures at this time - patient agreeable to plan Orders for AMS STAFF to arrange None at this time Orders for Amanda Pardo to arrange Start Medrol dose pack as prescribed - complete course, take with food in the morning to prevent stomach upset and insomnia Start tizanidine as needed Start OTC ibuprofen or naproxen as needed for pain and inflammation Can take acetaminophen (Tylenol) in addition to above pain medications Consider ice/heat as needed Continue massage as needed Research and perform exercises/stretches for neck pain and shoulder pain Continue monitoring symptoms - report persistent or worsening symptoms to the office or go to ER Call office in 2 weeks with an update on condition - will consider imaging (US and/or Xray) and PT referral Follow up as scheduled with Dr. Ryan or sooner if necessary Annual physical exam 10/26/2021 Assessment & Plan (01/22/2023 4:42 PM CDT): Doing well. BMI: 47 (Obese) Routine labs ordered - BMP, Lipid, GC/Chlamydia ordered. Preventative Screening Due:N/A Dietary and exercise recommendations given today. Recommend exercise at least 30 minutes moderate to vigorous exercise and some strength training most days of the week. (minimum 150 minutes weekly) Discussed MyPlate recommendations and increasing fruits and vegetables Vaccines due -COVID booster RTC annually for f/u Assessment & Plan (10/26/2021 11:45 AM CDT): Doing well. BMI: 41 (Obese) Routine labs ordered - Lipid, GC/Chlamydia ordered. Reviewed CMP/BMP recently ordered by [facility] Preventative Screening Due:N/A Dietary and exercise recommendations given today. Recommend exercise at least 30 minutes moderate to vigorous exercise and some strength training most days of the week. (minimum 150 minutes weekly) Discussed MyPlate recommendations and increasing fruits and vegetables Vaccines due - Up to date RTC annually for f/u Adjustment reaction with anxiety and depression 10/26/2021 Assessment & Plan (01/22/2023 4:46 PM CDT): Chronic and stable. Denies symptoms currently. PHQ 2 score is 0 gen 7 score 1. Monitor for symptom recurrence Follow-up 6 months Assessment & Plan (11/28/2021 9:36 AM CDT): Acute on chronic. PHQ 2 score , GEN 7 Score 11. Moderate Anxiety. Depression is controlled. - Continue with therapist for counseling - Increase Lexapro 10mg daily. Risks/benefits and alternatives discussed - F/u 4 weeks for re-eval Assessment & Plan (10/26/2021 11:47 AM CDT): Acute on chronic. PHQ 2 score 2, GEN 7 Score 12. Moderate Anxiety. - Continue with therapist for counseling -Start Lexapro 5mg daily. Risks/benefits and alternatives discussed - F/u 4 weeks for re-eval Class 3 severe obesity due t o excess calories without serious comorbidity with body mass index (BMI) of 45.0 to 49.9 in adult 10/26/2021 Assessment & Plan (01/22/2023 4:50 PM CDT): Counseled on diet and exercise today. Will place order for would go be 0.25 mg weekly. Risks/benefits and alternatives discussed. Will await insurance approval and follow-up in 1 month Screening-pulmonary TB 10/26/2021 Screening examination for venereal disease 10/26 Polycystic ovary disease 02/23/2020 Encounter for routine child health examination without abnormal findings 10/07/2017 Obesity peds (BMI >=95 percentile) 10/07/2017 Dysmenorrhea 10/07/2017 Resolved Problems Problem Noted Date Diagnosed Date Resolved Date Sprain of anterior talofibul ar ligament of left ankle 02/09/2020 10/10/2022 Worms in stool 10/21/2017 07/23/2023 Immunizations Immunization Administration Dates Next Due DTaP 5 Pertussis 03/02/2009, 5,03/10/2004,12/27,2003 HPV9 09/28/2020,05/25/2020,02/23/2020 Hep B, Unspecified 03/10/2004,2003, 004 HiB 03/19/2005, 4,2003,10/31 IPV 03/02/2009, 5,2003,10/31 Influenza, Quadrivalent, Spl it, Preservative Free, Intramuscular 06/08/2021,05/25/2020,06/27/2019 Influenza, Trivalent, IM (MDV) 04/28/2015 MMR 03/02/2009,08/31/2004 Meningococcal Conjugate (Menveo) 02/23/2020 Meningococcal MCV4P (Menactra) 11/25/2014 PPD TEST 10/31/2021 Pneumococcal Conjugate, Unspecified 02/23,06/02/2004,03/10/2004,12/27 Tdap 11/25/2014 Varicella 03/02/2009,08/31/2004 Social History Tobacco Use Types Packs/Day Years Used Date Smoking Tobacco: Never Smokeless Tobacco: Never Tobacco Cessation:Counseling Given: Not Answered AUDIT-C Answer Date Recorded Q1: How often do you have a drink containing alc ohol? Never 01/22/2023 Average Number of Drinks Not on file 023 Frequency of Binge Drinking Not on file 06/2022 PHQ-2 Answer Date Recorded PHQ-2 Total Score (If total score is 3 or more points, staff should administer the PHQ-9) 0 01/22/2023 Personal Safety Answer Date Recorded Getting School Help Needed Not on file 06/21 Comments Unknown Sex and Gender Information Value Date Recorded Sex Assigned at Not on file Legal Sex Female 3:03 PM MARKETING MANAGER HEALTH COMMUNICATIONS Gender Identity Female 12/17/2023 12:49 PM CDT Sexual Orientation Lesbian 12/17/2023 12 :49 PM CDT Last Filed Vital Signs Vital Sign Reading Time Taken Comments Blood Pressure 116/82 07/23/2023 3:54 PM MARKETING MANAGER HEALTH COMMUNICATIONS Pulse 120 07/23/2023 3:54 PM MARKETING MANAGER HEALTH COMMUNICATIONS Temperature 36.5 C (97.7 F) 07/23/2023 3:54 PM MARKETING MANAGER HEALTH COMMUNICATIONS Respiratory Rate 20 07/23/2023 3:54 PM MARKETING MANAGER HEALTH COMMUNICATIONS Oxygen Saturation 98% 07/23/2023 3:54 PM MARKETING MANAGER HEALTH COMMUNICATIONS Inhaled Oxygen Concentration - - Weight 116.1 kg (256 lb) 07/23/2023 3:54 PM MARKETING MANAGER HEALTH COMMUNICATIONS Height 162.6 cm (5' 4.02 ) 07/23/2023 3:54 PM CS T Body Mass Index 43.92 07/23/2023 3:54 PM MARKETING MANAGER HEALTH COMMUNICATIONS Plan of Treatment Not on file Insurance [facility] CHOICE PLUS [facility] HMO/PPO Address: [address] [place] [address] [facility] CHOICE PLUS [facility] HMO/PPO Address: [address] [address] [place] [address] [facility] CHO[facility] HMO/PPO Address: [address] [address] [place] [address] [facility] CHOICE PLUS [facility] HMO/PPO Address: [address] [place] [address] CHO[facility]US [facility] HMO/PPO Address: [address] [place] [address] [facility] HMO/PPO Address: [address] [place] [address] Care Teams Chief Controller Station Relationship Specialty Start Date End Date Shyann Ryan MD PCP - General Family Practice 10/31/21
--- OUTSIDE RECORDS SUMMARY | 2024-11-06 21:30 | XMS_ITS | Encounter Summary ---
Author Organization [facility] Address [address] [place] [address] Care Team Providers Care Buffing Wheel Former Machine Name Role Phone Lasha Henderson MD Primary Care Provider [phone] Encounter Details Date Type Department Care Team (Latest Contact Info) Description 11/21/2004 Outpatient Historical [facility] Lasha Mayer MD [address] [address] ACQ NASOLACRML STENOSIS (Primary Dx) Social History Tobacco Use Types Packs/Day Years Used Date Smoking Tobacco: Never Assessed Comments Unknown Sex and Gender Information Value Date Recorded Sex Assigned at Not on file Legal Sex Female 4:23 AM GUARD SERGEANT Gender Identity Not on file Sexual Orientation Not on file documented as of this encounter Plan of Treatment Not on file documented as of this encounter Visit Diagnoses Diagnosis Stenosis of nasolacrimal duct, acquired- Primary documented in this encounter Care Teams Buffing Wheel Former Machine Relationship Specialty [place] [address] [address] PCP - General 11/21/04 documented as of this encounter
--- OUTSIDE RECORDS SUMMARY | 2024-11-06 21:30 | XMS_ITS | Clinical Summary ---
Author Organization [facility] [address] Address [address] [place] [address] Phone Care Team Providers Care Drapery Operator Name Role Phone Shyann Ryan MD Primary Care Provider [phone] Allergies No known active allergies Medications sertraline [...] 07/23/2023 Assessment & Plan (07/25/2023 10:44 AM GARAGE HAND): Symptoms intermittently for 2 weeks with associated [...] as instructed. Stay hydrated. Keep follows with POT FIRER to manage PCOS. Other fatigue 07/23/2023 Assessment & Plan (07/25/2023 10:45 AM GARAGE HAND): Symptoms intermittently for 2 weeks with associated [...] as instructed. Stay hydrated. Keep follows with [facility] to manage PCOS. Cutaneous abscess 06/21/2023 Assessment & Plan (06/21/2023 5:34 PM GARAGE HAND): Furuncle left check Culture collected Keep area [...] Conjugate, Unspecified 02/23,06/02/2004,03/10/2004,12/27 Tdap 11/25/2014 Varicella 03/02/2009,08/31/2004 Medical History Medical History Date Comments PCOS (polycystic ovarian syndrome) Anxiety Depression Social History Tobacco Use Types Packs/Day Years Used Date Smoking Tobacco: Never Smokeless Tobacco: Never Tobacco Cessation:Counseling Given: Not Answered AUDIT-C Answer Date Recorded Q1: How often do you have a drink containing alc ohol? Never 01/22/2023 Average Number of Drinks Not on file 023 Frequency of Binge Drinking Not on file 0806/2022 PHQ-2 Answer Date Recorded PHQ-2 Total Score (If total score is 3 or more points, staff should administer the PHQ-9) 0 01/22/2023 Personal Safety Answer Date Recorded Getting School Help Needed Not on file 06/21 Comments Unknown Sex and Gender Information Value Date Recorded Sex Assigned at Not on file Legal Sex Female 3:03 PM GARAGE HAND Gender Identity Female 12/17/2023 12:49 PM CDT Sexual Orientation Lesbian 12/17/2023 12 :49 PM CDT Obstetrics History Last Filed Vital Signs Vital Sign Reading Time Taken Comments Blood Pressure 116/82 07/23/2023 3:54 PM GARAGE HAND Pulse 120 07/23/2023 3:54 PM GARAGE HAND Temperature 36.5 C (97.7 F) 07/23/2023 3:54 PM GARAGE HAND Respiratory Rate 20 07/23/2023 3:54 PM GARAGE HAND Oxygen Saturation 98% 07/23/2023 3:54 PM GARAGE HAND Inhaled Oxygen Concentration - - Weight 116.1 kg (256 lb) 07/23/2023 3:54 PM GARAGE HAND Height 162.6 cm (5' 4.02 ) 07/23/2023 3:54 PM CS T Body Mass Index 43.92 07/23/2023 3:54 PM GARAGE HAND Plan of Treatment Health Maintenance Due Date Last Done Comments Cervical Cancer Screening 2003 Hepatitis C Screening 2003 Meningococcal B Vaccine (1 o f 2 - Standard) 2019 Depression Screening 01/23/2024 01/22/2023, 11/28/2021, 10/26/2021 Regular Well Visit/Exam 18-64 01/23/2024 01/22/2023, 10/26/2021 Covid-19 Vaccine (4 - 2023-2 5 season) 2024 06/08/2021, 11/10/2020, 10/20/2020 DTaP/Tdap/Td Vaccine (7 - Td or Tdap) 11/25/2024 11/25/2014, 03/02/2009, 03/19/2005, Additional history exists Influenza Vaccine (Season Ended) 2025 06/08/2021, 05/25/2020, 06/27/2019, Additional history exists Hepatitis B Screening Completed 03/10/2004 , 2003, 2003 Pneumococcal vaccine <65 Completed 007, 06/02/2004, 03/10/2004, Additional history exists Varicella Vaccines Completed 03/02/2009, 08/31/2004 Meningococcal Vaccine Completed 02/23/2020, 015 HPV Vaccines Completed 09/28/2020, 07/2019, 02/23/2020 Insurance [facility] CHOICE PLUS [facility] HMO/PPO Address: [facility] [address] [place] [address] [facility] CHOICE PLUS [facility] HMO/PPO Address: [address] [place] [phone] [facility] CHOICE PLUS [facility] HMO/PPO Address: [address] [place], [place] [id number] [facility] CHOICE PL[facility] HMO/PPO Address: [address] [place], [place] [id number] [facility] CHOICE PLUS [facility] HMO/PPO Address: [address] [place] [address] [facility] CHOICE PLUS [facility] HMO/PPO Address: [address] [place] [address] Care Teams Drapery Operator Relationship Specialty Start Date End Date Shyann Ryan MD PCP - General Family Practice 10/31/21
--- OUTSIDE RECORDS SUMMARY | 2024-11-06 21:30 | XMS_ITS | Encounter Summary ---
Author Organization [facility] Address [address] [place] [address] Phone Care Team Providers Care Ed Manager Name Role Phone Shyann Ryan MD Primary Care Provider [phone] Encounter Details Date Type Department Care Team (Late st Contact Info) Description 02/08/2023 Orders Only [facility] [address] [place] [address] Scanning, Provider Social History Tobacco Use Types Packs/Day Years Used Date Smoking Tobacco: Never Smokeless Tobacco: Never AUDIT-C Answer Date Recorded Q1: How often do you have a drink containing alc ohol? Never 01/22/2023 Average Number of Drinks Not on file 023 Frequency of Binge Drinking Not on file 06/2022 PHQ-2 Answer Date Recorded PHQ-2 Total Score (If total score is 3 or more points, staff should administer the PHQ-9) 0 01/22/2023 Comments Unknown Sex and Gender Information Value Date Recorded Sex Assigned at Not on file Legal Sex Female 3:03 PM DEHYDROGENATION CONVERTER OPERATOR Gender Identity Female 12/17/2023 12:49 PM CDT Sexual Orientation Lesbian 12/17/2023 12 :49 PM CDT documented as of this encounter Plan of Treatment Not on file documented as of this encounter Procedures Procedure Name Priority Date/Time Associated Diagnosis Comments SCAN - RADIOLOGY/IMAGING 02/08/2023 documented in this encounter Results * SCAN - RADIOLOGY/IMAGING (02/08/2023) Anatomical Region Laterality Modality Other us Provider Scanning Final Result documented in this encounter Visit Diagnoses Not on filedocumented in this encounter Care Teams Ed Manager Relationship Specialty Start Date End Date Shyann Ryan MD PCP - General Family Practice 10/31/21 documented as of this encounter
--- OUTSIDE RECORDS SUMMARY | 2024-11-06 21:30 | XMS_ITS | Encounter Summary ---
Author Organization [facility] Address [address] [place] [address] Phone Care Team Providers Care Appliquer Zigzag Name Role Phone Lasha Hernandez MD Primary Care Provider [phone] Shyann Ryan MD Primary Care Provider [phone] Encounter Details Date Type Department Care Team (Late st Contact Info) Description 04/23/2017 Orders Only [facility] [address] [place] [address] Iris Lund RN Social History Tobacco Use Types Packs/Day Years Used Date Smoking Tobacco: Never Assessed Comments Unknown Sex and Gender Information Value Date Recorded Sex Assigned at Not on file Legal Sex Female 3:03 PM SILVER CHASER Gender Identity Female 12/17/2023 12:49 PM CDT Sexual Orientation Lesbian 12/17/2023 12 :49 PM CDT documented as of this encounter Ordered Prescriptions Prescription Sig Dispense Quantity Refills Last Filled Start Date End Date acyclovir (ZOVIRAX) 400 mg tablet 1 tablet 3 times a day for 7 days 21 tablet 04/23/2017 10/26/2021 documented in this encounter Plan of Treatment Not on file documented as of this encounter Visit Diagnoses Not on filedocumented in this encounter Additional Health Concerns Infection Onset Date Last Indicated Resolved Time COVID: Suspected 07/19/2021 07/19/2021 07/29/2021 3:05 AM SILVER CHASER documented as of this encounter Care Teams Appliquer Zigzag Relationship Specialty Start Date End Date Lasha Hernandez MD [address] [place] [address] PCP - General 05/27/12 10/30/21 Shyann Ryan MD [address] [place] [address] PCP - General Family Practice 10/31/21 documented as of this encounter
--- OUTSIDE RECORDS SUMMARY | 2024-11-06 21:30 | XMS_ITS | Clinical Summary ---
Author Organization [facility] Address [address] Batista: Epic Prelude ADT [place] [address] Care Team Providers Care English As A Second Language Instructor Name Role Phone Lasha Henderson MD Primary Care Provider [phone] Social History Tobacco Use Types Packs/Day Years Used Date Smoking Tobacco: Never Assessed Comments Unknown Sex and Gender Information Value Date Recorded Sex Assigned at Not on file Legal Sex Female 4:23 AM TIN FLIPPER Gender Identity Not on file Sexual Orientation Not on file Plan of Treatment Health Maintenance Due Date Last Done Comments CHLAMYDIA SCREENING (ANNUAL) 11-24 YEARS 08/25/2014 HPV VACCINES (1 - 3-dose series) 08/25/2018 DTAP/TDAP/TD VACCINES (1 - Tdap) 08/25/2022 HEPATITIS B VACCINES (1 of 3 - 19+ 3-dose series) 09/2022 INFLUENZA VACCINE (#1) 2024 CERVICAL CANCER SCREENING 08/25/2024 HPV/Cotest (21-29) 08/25/2024 PAP SMEAR 08/25/2024 Care Teams English As A Second Language Instructor Relationship Specialty [place] [address] [address] PCP - General 11/21/04
[2024-11-06 21:35] VITALS: BP 143/68; PULSE 93; RESP 16; TEMP 36.5; O2SAT 100
--- NOTE | 2024-11-07 02:34 | PC.NURSE ---
2nd call no answer
--- OUTSIDE RECORDS SUMMARY | 2024-11-07 02:39 | XMS_ITS | Referral Summary ---
Author Organization [facility] [address] Address [address] [place] [address] Phone Care Team Providers Care Human Resource Assistant Name Role Phone Shyann Ryan MD Primary Care Provider [phone] Allergies No known active allergies Medications sertraline [...] 07/23/2023 Assessment & Plan (07/25/2023 10:44 AM GLASS MOULD CLEANER): Symptoms intermittently for 2 weeks with associated [...] as instructed. Stay hydrated. Keep follows with EMPLOYMENT CLERK to manage PCOS. Other fatigue 07/23/2023 Assessment & Plan (07/25/2023 10:45 AM GLASS MOULD CLEANER): Symptoms intermittently for 2 weeks with associated [...] as instructed. Stay hydrated. Keep follows with EMPLOYMENT CLERK to manage PCOS. Cutaneous abscess 06/21/2023 Assessment & Plan (06/21/2023 5:34 PM GLASS MOULD CLEANER): Furuncle left check Culture collected Keep area [...] on file Legal Sex Female 3:03 PM GLASS MOULD CLEANER Gender Identity Female 12/17/2023 12:49 PM CDT Sexual Orientation Lesbian 12/17/2023 12 :49 PM CDT Last Filed Vital Signs Vital Sign Reading Time Taken Comments Blood Pressure 116/82 07/23/2023 3:54 PM GLASS MOULD CLEANER Pulse 120 07/23/2023 3:54 PM GLASS MOULD CLEANER Temperature 36.5 C (97.7 F) 07/23/2023 3:54 PM GLASS MOULD CLEANER Respiratory Rate 20 07/23/2023 3:54 PM GLASS MOULD CLEANER Oxygen Saturation 98% 07/23/2023 3:54 PM GLASS MOULD CLEANER Inhaled Oxygen Concentration - - Weight 116.1 kg (256 lb) 07/23/2023 3:54 PM GLASS MOULD CLEANER Height 162.6 cm (5' 4.02 ) 07/23/2023 3:54 PM CS T Body Mass Index 43.92 07/23/2023 3:54 PM GLASS MOULD CLEANER Plan of Treatment Not on file Insurance [facility] Address: [address] [address] [place] [address] [facility]PPO Address: [address] [address] [place] [address] [facility]/PPO Address: [address] [address] [place] [address] [facility]/PPO Address: [address] [place] [address] [facility]/PPO Address: [address] [place] [address] [facility]/PPO Address: [address] [place] [address] Care Teams Human Resource Assistant Relationship Specialty Start Date End Date Shyann Ryan MD PCP - General Family Practice 10/31/21
--- OUTSIDE RECORDS SUMMARY | 2024-11-07 02:40 | XMS_ITS | Encounter Summary ---
Author Organization [facility] Address [address] [place] [address] Care Team Providers Care Chief Deputy Clerk/Bailiff Name Role Phone Lasha Henderson MD Primary Care Provider [phone] Encounter Details Date Type Department Care Team (Latest Contact Info) Description 11/21/2004 Outpatient Historical [facility] Lasha Mayer MD [address] [address] ACQ NASOLACRML STENOSIS (Primary Dx) Social History Tobacco Use Types Packs/Day Years Used Date Smoking Tobacco: Never Assessed Comments Unknown Sex and Gender Information Value Date Recorded Sex Assigned at Not on file Legal Sex Female 4:23 AM JBOSS DEVELOPER Gender Identity Not on file Sexual Orientation Not on file documented as of this encounter Plan of Treatment Not on file documented as of this encounter Visit Diagnoses Diagnosis Stenosis of nasolacrimal duct, acquired- Primary documented in this encounter Care Teams Chief Deputy Clerk/Bailiff Relationship Specialty [place] [address] [address] PCP - General 11/21/04 documented as of this encounter
--- OUTSIDE RECORDS SUMMARY | 2024-11-07 02:40 | XMS_ITS | Clinical Summary ---
Author Organization [facility] Address [address] [place] [address] Phone Care Team Providers Care Shift Commander Name Role Phone Provider, None Primary Care Provider Unavailabl e Medications No known medications Encounters Date Type Department Care Team Description 11/06/2024 11:36 PM CDT - Present Emergency [facility] Emergency [address] [place] [address] Obdulio Prajapati MD 11/06/2024 Travel from Last 3 Months Social History Tobacco Use Types Packs/Day Years Used Date Smoking Tobacco: Never Smokeless Tobacco: Never Tobacco Cessation:Counseling Given: Not Answered Alcohol Use Standard Drinks/Week Comments Never 0 (1 standard drink = 0.6 oz pur e alcohol) Sexually Active Control Partners Comments Not Currently Comments No Sex and Gender Information Value Date Recorded Sex Assigned at Female 11/07/2024 12:02 AM CDT Legal Sex Female 11:29 PM CDT Gender Identity Female 11/07/2024 12:02 AM CDT Sexual Orientation Not on file Last Filed Vital Signs Vital Sign Reading Time Taken Comments Blood Pressure 136/57 11/07/2024 1:30 AM CDT Pulse 102 11/07/2024 2:14 AM CDT Temperature 37.1 C (98.8 F) 11/06/2024 11:41 PM CDT Respiratory Rate 16 11/06/2024 11:41 PM CDT Oxygen Saturation 98% 11/07/2024 2:14 AM CDT Inhaled Oxygen Concentration - - Weight 122.5 kg (270 lb) 11/06/2024 11:41 PM CDT Height 162.6 cm (5' 4 ) 11/06/2024 11:41 PM CDT Body Mass Index 46.35 11/06/2024 11:41 PM CDT Plan of Treatment Health Maintenance Due Date Last Done Comments Hepatitis C Virus (HCV) Screening 2003 Meningococcal B Immunization (1 of 2 - Standard) 2019 SARS-COV-2 Immunization (4 - season) 2024 06/08/2021, 11/10/2020, 10/20/2020 Pap Smear 08/25/2024 Influenza Immunization (Season Ended) 2025 06/08/2021, 05/25/2020, 06/27/2019, Additional history exists Respiratory Syncytial Virus (RSV) Immunization (Adult) (1 - 1-dose 75+ series) 08/25/2078 Hepatitis B Immunization Completed 004, 2003, 2003 Pneumococcal Immunization Combined Aged Out 03/19/2007, 06/02/2004, 03/10/2004, Additional history exists No longer eligible based on patient's age to complete this topic TdaP Immunization Completed 11/25/2014 Meningococcal Immunization (ACWY) Completed 02/23/2020, 11/25/2014 Human Papillomavirus (HPV) Immunization Completed 09/28/2020, 05/25/2020, 02/23/2020 Rotavirus Immunization Aged Out No lo nger eligible based on patient's age to complete this topic Procedures * The patient is currently admitted. The information in this section might not be complete until the patient is discharged. Procedure Name Priority Date/Time Associated Diagnosis Comments CBC WITH AUTO DIFFERENTIAL STAT 11/07/2024 12:32 AM CDT LIPASE STAT 11/07/2024 12:32 AM CDT COMPLETE BLOOD COUNT (CBC) WITH DIFF STAT 11/07/2024 12:32 AM CDT CMP (COMPREHENSIVE METABOLIC PANEL) STAT 11/07/2024 12:32 AM CDT POCT URINE HCG () STAT 11/06/2024 11:46 PM CDT URINALYSIS REFLEX IF INDICATED BY ABNORMAL RESULTS STAT 11/06/2024 11:46 PM CDT from Last 3 Months Results * (ABNORMAL) CBC with Auto Differential (11/07/2024 12:32 AM CDT) [facility] WBC 14.35(H) 4.00 - 12.00 10(3)/mcL 11/07/2024 12:56 AM CDT [facility] RBC 5.30 3.80 - 5.30 10(6)/mcL 11/07/2024 12:56 AM CDT [facility] HEMOGLOBIN (HGB) 15.1 12.0 - 15.8 g/dL 11/07/2024 12:56 AM CDT [facility] HEMATOCRIT (HCT) 46.3 36.0 - 47.0 % 11/07/2024 12:56 AM CDT [facility] MCV 87.4 82.0 - 96.0 fL 11/07/2024 12:56 AM CDT [facility] MCH 28.5 26.0 - 34.0 pg 11/07/2024 12:56 AM CDT [facility] MCHC 32.6 31.0 - 36.0 g/dL 11/07/2024 12:56 AM CDT [facility] PLATELET COUNT 233 140 - 440 10(3)/mcL 11/07/2024 12:56 AM CDT [facility] RDW 12.6 11.8 - 15.5 % 11/07/2024 12:56 AM CDT [facility] MPV 12.2 9.7 - 12.4 fL 11/07/2024 12:56 AM CDT [facility] NEUTROPHILS 82.8(H) 47.0 - 73.0 % 11/07/2024 12:56 AM CDT [facility] LYMPHOCYTES 11.3(L) 18.0 - 42.0 % 11/07/2024 12:56 AM CDT [facility] MONOCYTES 4.9 4.0 - 12.0 % 11/07/2024 12:56 AM CDT [facility] EOSINOPHILS 0.7 0.0 - 5.0 % 11/07/2024 12:56 AM CDT [facility] BASOPHILS 0.3 0.0 - 1.0 % 11/07/2024 12:56 AM CDT [facility] ABSOLUTE NEUTROPHILS 11.88(H) 1.60 - 7.70 10(3)/[facility] 11/07/2024 12:56 AM CDT [facility] ABSOLUTE LYMPHOCYTES 1.62 1.30 - 3.20 10(3)/[facility] 11/07/2024 12:56 AM CDT [facility] ABSOLUTE MONOCYTES 0.71 0.20 - 1.00 10(3)/[facility] 11/07/2024 12:56 AM CDT [facility] ABSOLUTE EOSINOPHIL 0.10 0.00 - 0.40 10(3)/[facility] 11/07/2024 12:56 AM CDT [facility] ABSOLUTE BASOPHILS 0.04 0.00 - 0.10 10(3)/[facility] 11/07/2024 12:56 AM CDT [facility] NRBC PER 100 WBC 0 11/08/19 25 12:56 AM CDT [facility] Blood Venipuncture / Unknown 11/07/2024 12:32 AM CDT 11/07/2024 12:54 AM CDT us Obdulio Prajapati MD HEMATOLOGY ORDERABLES Fin al Result [facility] [address] [place] [address] * Lipase (11/07/2024 12:32 AM CDT) LIPASE 14 8 - 78 U/L 11/07/2024 1:27 AM CDT [facility] Blood Venipuncture / Unknown 11/07/2024 12:32 AM CDT 11/07/2024 12:54 AM CDT us Obdulio Prajapati MD CHEMISTRY ORDERABLES Kellen l Result [facility] [address] [place] [address] * (ABNORMAL) CMP (Comprehensive Metabolic Panel) (11/07/2024 12:32 AM CDT) SODIUM 140 136 - 145 mmol/L 11/07/2024 1:27 AM CDT [facility] POTASSIUM 4.0 3.5 - 5.1 mmol/L 11/07/2024 1:27 AM CDT [facility] CHLORIDE 107 98 - 107 mmol/L 11/07/2024 1:27 AM CDT [facility] CO2, VENOUS 21(L) 22 - 30 mmol/L 11/07/2024 1:27 AM CDT [facility] ANION GAP 16.0 <18.0 mmol/L 11/07/2024 1:27 AM CDT [facility] GLUCOSE 98 70 - 99 mg/dL 11/07/2024 1:27 AM CDT [facility] BUN 14 5 - 18 mg/dL 11/07/2024 1:27 AM CDT [facility] CREATININE, BLOOD 0.69 0.60 - 1.00 mg/dL 11/07/2024 1:27 AM CDT [facility] BUN/CREATININE RATIO 20 12 - 20 ratio 11/07/2024 1:27 AM CDT [facility] TOTAL PROTEIN 7.9 6.0 - 8.0 g/dL 11/07/2024 1:27 AM CDT [facility] ALBUMIN 4.1 3.5 - 5.0 g/dL 11/07/2024 1:27 AM CDT [facility] A/G RATIO 1.1 1.0 - 2.2 11/07/2024 1:27 AM CDT [facility] CALCIUM 9.2 8.7 - 10.5 mg/dL 11/07/2024 1:27 AM CDT [facility] T BILI 0.4 0.2 - 1.2 mg/dL 11/07/2024 1:27 AM CDT [facility] SGOT (AST) 32 <43 U/L 11/07/2024 1:27 AM CDT [facility] SGPT (ALT) 36 <56 U/L 11/07/2024 1:27 AM CDT [facility] ALKALINE PHOSPHATASE 79 40 - 150 U/L 11/07/2024 1:27 AM CDT [facility] GFR, ESTIMATED >60 >=60 11/07/2024 1:27 AM CDT [facility] Comment: Creatinine Clearance is the preferred criteria for selecting drug dose adjustments in renally impaired patients. The GFR is provided as additional pertinent clinical information. GFR is reported in mL/min/1.73 sq m. Calculation based on the Chronic Kidney Disease Epidemiology Collaboration (CKD- EPI) equation refit without adjustment for race. GFR, EST. >60 >=60 025 1:27 AM CDT [facility] GFR, EST. NONAFRICAN >60 >=60 11/07/2024 1:27 AM CDT [facility] Blood Venipuncture / Unknown 11/07/2024 12:32 AM CDT 11/07/2024 12:54 AM CDT Obdulio Prajapati MD CHEMISTRY ORDERABLES Kellen l Result [facility] [address] [place] [address] * (ABNORMAL) URINALYSIS REFLEX IF INDICATED BY ABNORMAL RESULTS (11/06/2024 11:46 PM CDT) SPECIFIC GRAVITY 1.025 1.003 - 1.030 11/07/2024 12:45 AM CDT [facility] URINE PH 6.0 5.0 - 9.0 11/07/2024 12:45 AM CDT [facility] WBC ESTERASE Negative Negative 11/07/2024 12:45 AM CDT [facility] NITRITE Negative Negative 11/07/2024 12:45 AM CDT [facility] PROTEIN, RANDOM URINE 30 mg/dL(A) Negative 11/07/2024 12:45 AM CDT [facility] URINE GLUCOSE, QUAL Negative Negative 11/07/2024 12:45 AM CDT [facility] URINE KETONES Negative Negative 11/07/2024 12:45 AM CDT [facility] UROBILINOGEN Normal Normal mg/dL 11/07/2024 12:45 AM CDT [facility] URINE BLOOD Negative Negative janny/ul 11/07/2024 12:45 AM CDT [facility] URINALYSIS COLOR Yellow 11/08/19 12:45 AM CDT [facility] URINALYSIS CLARITY Clear 11/07/2024 12:45 AM CDT [facility] WBC (Urine) 0-5 Negative, 0-5 /hpf 11/07/2024 12:45 AM CDT [facility] URINE RBC'S 0-2 Negative, 0-2 /hpf 11/07/2024 12:45 AM CDT [facility] EPITHELIAL CELLS Moderate amount /lpf 11/07/2024 12:45 AM CDT [facility] BACTERIA, URINE Few(A) Negative /hpf 11/07/2024 12:45 AM CDT [facility] Urine URINE SPECIMEN OBTAINED BY CLEAN CATCH PROCEDURE / Unknown Non-Phlebotomy Collection / Unknown 11/06/2024 11:46 PM CDT 11/07/2024 12:23 AM CDT us Obdulio Prajapati MD URINE ORDERABLES Final Re sult [facility] [address] [place] [address] * POCT Urine HCG () (11/06/2024 11:46 PM CDT) POC URINE Negative POC URINE CONTROL Stretcher Operator Pass Urine 11/06/2024 11:4 6 PM CDT Obdulio Prajapati MD POINT OF CARE TESTING ([place] MAGGIE) Final Result from Last 3 Months Insurance [facility] Care Teams Shift Commander Relationship Specialty Start Date End Date Provider, Geraldo JOSE PCP - General 11/06/24
--- OUTSIDE RECORDS SUMMARY | 2024-11-07 02:40 | XMS_ITS | Encounter Summary ---
Author Organization [employer] Care Team Providers Care Director Of Scout Work Name Role Phone Provider, None Primary Care Provider Unavailabl e Encounter Details Date Type Department Care Team (Latest Contact Info) Description 11/06/2024 Travel Social History Tobacco Use Types Packs/Day Years Used Date Smoking Tobacco: Never Smokeless Tobacco: Never Alcohol Use Standard Drinks/Week Comments Never 0 (1 standard drink = 0.6 oz pur e alcohol) Sexually Active Control Partners Comments Not Currently Comments No Sex and Gender Information Value Date Recorded Sex Assigned at Female 11/07/2024 12:02 AM CDT Legal Sex Female 11:29 PM CDT Gender Identity Female 11/07/2024 12:02 AM CDT Sexual Orientation Not on file documented as of this encounter Plan of Treatment Not on file documented as of this encounter Visit Diagnoses Not on filedocumented in this encounter Care Teams Director Of Scout Work Relationship Specialty Start Date End Date Provider, Geraldo [place] PCP - General 11/06/24 documented as of this encounter
--- OUTSIDE RECORDS SUMMARY | 2024-11-07 02:40 | XMS_ITS | Clinical Summary ---
Author Organization [facility] [employer] Address [address] [place] [address] Care Team Providers Care Carpenters Supervisor Name Role Phone Unavailable Primary Care Provider Unavailabl e Source Comments [facility] [employer],non-owned Affiliates and Associated Physician Practices is amultiple site organization consisting of ambulatory clinics and hospital sitesin [place], [place] and [place]. This disclosure is being madepursuant to the Care Everywhere program and may not contain all information available regarding this patient. Last updated 18.[facility] [employer] Allergies No known active allergies Medications * [...] on file Legal Sex Female 7:28 AM BEND UP Gender Identity Not on file Sexual Orientation [...] patient's age to complete this topic Insurance [facility] SELF PAY NO INSURANCE Member Subscriber Plan / Payer (Ef fective for All Dates) Name:Amanda Pardo Member ID:Not on file Relation to Subscriber:Not on file Name:AMANDA PARDO Subscriber ID:Not on file Address: [address] [place] [address] [place] [address] Payer ID:Not on file Group ID:Not on file Type:Self Pay Address: [place], [place]
--- OUTSIDE RECORDS SUMMARY | 2024-11-07 02:40 | XMS_ITS | Continuity of Care Document ---
Author Organization [facility] Address [address] [place] [address] Phone Care Team Providers Care Fish Boning Machine Feeder Name Role Phone Nilson Cr MD Unavailable [...] Diagnoses Date Provider Providers Copied on Encounter [facility], [address], [place], [place], [id number], [place] tel:[phone] [address] [place] [address] Shaye Devine. [address] [facility] [place], [place], [id number], [place]. tel:[phone] Referring Provider: Nilson Dozier [address] [place], [address] . tel:[phone] Family History Family Member Type Diagnosis Age At Onset Father Problem (finding) diabetes armanii balajis in first degree relative Payers Payer name Insurance type Covered alliance party ID Foster malave(s) [facility] CI [id number] Social History Type Description Quantity Date Captured [...]
--- OUTSIDE RECORDS SUMMARY | 2024-11-07 02:40 | XMS_ITS | Encounter Summary ---
Author Organization [facility] Address [address] [place] [address] Phone Care Team Providers Care Reporting Analyst Name Role Phone Lasha Hernandez MD Primary Care Provider + [phone] Shyann Ryan MD Primary Care Provider + [phone] Encounter Details Date Type Department Care Team (Late st Contact Info) Description 04/23/2017 Orders Only [facility] [address] [place] [address] Iris Lund RN Social History Tobacco Use Types Packs/Day Years Used Date Smoking Tobacco: Never Assessed Comments Unknown Sex and Gender Information Value Date Recorded Sex Assigned at Not on file Legal Sex Female 3:03 PM ART HANDLER Gender Identity Female 12/17/2023 12:49 PM CDT [...] COVID: Suspected 07/19/2021 07/19/2021 07/29/2021 3:05 AM ART HANDLER documented as of this encounter Care Teams Reporting Analyst Relationship Specialty Start Date End Date Lasha Hernandez MD [address] [place] [address] PCP - General 05/27/12 10/30/21 Shyann Ryan MD [address] [place] [address] PCP - General Family Practice 10/31/21 documented as of this encounter
--- OUTSIDE RECORDS SUMMARY | 2024-11-07 02:40 | XMS_ITS | Clinical Summary ---
Author Organization [facility] Address [address] 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
--- OUTSIDE RECORDS SUMMARY | 2024-11-07 02:40 | XMS_ITS | Clinical Summary ---
Author Organization [facility] [address] Address [address] [place] [address] Phone Care Team Providers Care Word Processor Name Role Phone Shyann Ryan MD Primary [...] 07/23/2023 Assessment & Plan (07/25/2023 10:44 AM PAIRER INSPECTOR): Symptoms intermittently for 2 weeks with associated [...] as instructed. Stay hydrated. Keep follows with TAX ASSOCIATE ATTORNEY to manage PCOS. Other fatigue 07/23/2023 Assessment & Plan (07/25/2023 10:45 AM PAIRER INSPECTOR): Symptoms intermittently for 2 weeks with associated [...] as instructed. Stay hydrated. Keep follows with TAX ASSOCIATE ATTORNEY to manage PCOS. Cutaneous abscess 06/21/2023 Assessment & Plan (06/21/2023 5:34 PM PAIRER INSPECTOR): Furuncle left check Culture collected Keep area [...] on file Legal Sex Female 3:03 PM PAIRER INSPECTOR Gender Identity Female 12/17/2023 12:49 PM CDT Sexual Orientation Lesbian 12/17/2023 12 :49 PM CDT Obstetrics History Last Filed Vital Signs Vital Sign Reading Time Taken Comments Blood Pressure 116/82 07/23/2023 3:54 PM PAIRER INSPECTOR Pulse 120 07/23/2023 3:54 PM PAIRER INSPECTOR Temperature 36.5 C (97.7 F) 07/23/2023 3:54 PM PAIRER INSPECTOR Respiratory Rate 20 07/23/2023 3:54 PM PAIRER INSPECTOR Oxygen Saturation 98% 07/23/2023 3:54 PM PAIRER INSPECTOR Inhaled Oxygen Concentration - - Weight 116.1 kg (256 lb) 07/23/2023 3:54 PM PAIRER INSPECTOR Height 162.6 cm (5' 4.02 ) 07/23/2023 3:54 PM CS T Body Mass Index 43.92 07/23/2023 3:54 PM PAIRER INSPECTOR Plan of Treatment Health Maintenance Due Date [...] HPV Vaccines Completed 09/28/2020, 07/2019, 02/23/2020 Insurance [facility] PLUS [facility] PLUS Care Teams Word Processor Relationship Specialty Start Date End Date Shyann Ryan MD PCP - General Family Practice 10/31/21
--- OUTSIDE RECORDS SUMMARY | 2024-11-07 02:40 | XMS_ITS | Encounter Summary ---
Author Organization [facility] Address [address] [place] [address] Phone Care Team Providers Care Senior Software Architect Name Role Phone Shyann Ryan MD Primary Care Provider [phone] Encounter Details Date Type Department Care Team (Late st Contact Info) Description 02/08/2023 Orders Only [facility] [address] [place] [address] Scanning, Provider Social History Tobacco [...] on file Legal Sex Female 3:03 PM WOOD CUTTER Gender Identity Female 12/17/2023 12:49 PM CDT [...] on filedocumented in this encounter Care Teams Senior Software Architect Relationship Specialty Start Date End Date Shyann Ryan MD PCP - General Family Practice 10/31/21 documented as of this encounter
--- OUTSIDE RECORDS SUMMARY | 2024-11-07 02:40 | XMS_ITS | Encounter Summary ---
Author Organization [facility] Address [address] [place] [address] Phone Care Team Providers Care Hydro Operator Name Role Phone Provider, None Primary Care Provider Unavailabl e Reason for Visit * Reason Comments Abdominal Pain Encounter Details Date Type Department Care Team ([facility] st Contact Info) Description 11/06/2024 11:36 PM CDT - Present Emergency [facility] Emergency [address] [place] [address] Obdulio Prajapati MD [address] [place] [address] Social History Tobacco Use Types Packs/Day Years [...] on file documented as of this encounter Last Filed Vital Signs Vital Sign Reading [...] Mass Index 46.35 11/06/2024 11:41 PM CDT documented in this encounter ED Notes * Autumn Craig RN - 11/07/2024 2:07 AM CDT Pt medicated per provider orders. Pt educated on intended effects and side effects of medication and verbalized understanding, able to provide teach back of education. * Autumn Craig RN - 11/07/2024 2:06 AM CDT Patient returned from CT at this time. * Autumn Craig RN - 11/07/2024 1:41 AM CDT Patient to CT at this time. * Autumn Craig RN - 11/07/2024 1:27 AM CDT Patient resting calmly on stretcher with call light and family member at bedside. Patient reports pain slightly improved after medication administration but only lasted a few minutes before worseningagain. Patient still rates her pain 8/10 and requests something else for pain. ERP notified. Patient also requesting a warm blanket, which was provided to her at this time. Patient denies any other needs at this time and verbalizes understanding of wait time. * Autumn Craig RN - 11/07/2024 12:41 AM CDT Patient is resting in room with call light and family member at bedside. Patient informed about wait time and verbalizes understanding. Patient denies needs at this time and verbalizes understanding that RN will complete hourly rounding. * Autumn Craig RN - 11/07/2024 12:36 AM CDT Pt medicated per provider orders. Pt educated on intended effects and side effects of medication and verbalized understanding, able to provide teach back of education. * Autumn Craig RN - 11/07/2024 12:14 AM CDT ERP at bedside. * Hilaria Cramer RN - 11/06/2024 11:42 PM CDT Pt ambulatory to triage with generalized pain that has turned into right lower qualdrant pain today. States she has thrown up once. Denies any abdominal hx but does have endometriosis and PCOS. Denies chance of . Denies urinary problems, normal bowel movements. documented in this encounter Plan of Treatment Pending Results Name Type Priority Associated Diagnoses Date/Time CT ABDOMEN PELVIS W/ CONTRAST Imaging Stat with Interpretation 11/07/2024 2:08 AM CDT Scheduled Orders Name Type Priority Associated Diagnoses Orde r Schedule CT ABDOMEN PELVIS W/ CONTRAST Imaging STAT Once PRN (for Ra diant use) for 1 Occurrences starting 11/07/2024 until 11/07/2024 documented as of this encounter Procedures * The patient is currently admitted. The information in this section might not be complete until the patient is discharged. Procedure Name Priority Date/Time Associated Diagnosis Comments CBC WITH AUTO DIFFERENTIAL STAT 11/07/2024 12:32 AM CDT LIPASE STAT 11/07/2024 12:32 AM CDT CMP (COMPREHENSIVE METABOLIC PANEL) STAT 11/07/2024 12:32 AM CDT COMPLETE BLOOD COUNT (CBC) WITH DIFF STAT 11/07/2024 12:32 AM CDT URINALYSIS REFLEX IF INDICATED BY ABNORMAL RESULTS STAT 11/06/2024 11:46 PM CDT POCT URINE HCG () STAT 11/06/2024 11:46 PM CDT documented in this encounter Results * (ABNORMAL) CBC with Auto Differential (11/07/2024 12:32 AM CDT) WBC 14.35(H) 4.00 - 12.00 10(3)/mcL 11/07/2024 12:56 AM CDT [facility] RBC 5.30 3.80 - 5.30 10(6)/mcL 11/07/2024 12:56 AM CDT [facility] HEMOGLOBIN (HGB) 15.1 12.0 - 15.8 g/dL 11/07/2024 12:56 AM CDT [facility] HEMATOCRIT (HCT) 46.3 36.0 - 47.0 % 11/07/2024 12:56 AM CDT [facility] MCV 87.4 82.0 - 96.0 fL 11/07/2024 12:56 AM CDT [facility] MCH 28.5 26.0 - 34.0 pg 11/07/2024 12:56 AM CDT [facility] MCHC 32.6 31.0 - 36.0 g/dL 11/07/2024 12:56 AM CDT [facility] PLATELET COUNT 233 140 - 440 10(3)/mcL 11/07/2024 12:56 AM CDT [facility] RDW 12.6 11.8 - 15.5 % 11/07/2024 12:56 AM CDT [facility] MPV 12.2 9.7 - 12.4 fL 11/07/2024 12:56 AM CDT [facility] NEUTROPHILS 82.8(H) 47.0 - 73.0 % 11/07/2024 12:56 AM CDT [facility] LYMPHOCYTES 11.3(L) 18.0 - 42.0 % 11/07/2024 12:56 AM CDT [facility] MONOCYTES 4.9 4.0 - 12.0 % 11/07/2024 12:56 AM CDT [facility] EOSINOPHILS 0.7 0.0 - 5.0 % 11/07/2024 12:56 AM CDT [facility] BASOPHILS 0.3 0.0 - 1.0 % 11/07/2024 12:56 AM CDT [facility] ABSOLUTE NEUTROPHILS 11.88(H) 1.60 - 7.70 10(3)/[facility] 11/07/2024 12:56 AM CDT [facility] ABSOLUTE LYMPHOCYTES 1.62 1.30 - 3.20 10(3)/[facility] 11/07/2024 12:56 AM CDT [facility] ABSOLUTE MONOCYTES 0.71 0.20 - 1.00 10(3)/[facility] 11/07/2024 12:56 AM CDT [facility] ABSOLUTE EOSINOPHIL 0.10 0.00 - 0.40 10(3)/[facility] 11/07/2024 12:56 AM CDT [facility] ABSOLUTE BASOPHILS 0.04 0.00 - 0.10 10(3)/[facility] 11/07/2024 12:56 AM CDT [facility] NRBC PER 100 WBC 0 11/08/19 12:56 AM CDT [facility] Blood Venipuncture / Unknown 11/07/2024 12:32 AM CDT 11/07/2024 12:54 AM CDT us Obdulio Parjapati MD HEMATOLOGY ORDERABLES Fin al Result [facility] [address] [place] [address] * Lipase (11/07/2024 12:32 AM CDT) LIPASE 14 8 - 78 U/L 11/07/2024 1:27 AM CDT [facility] Blood Venipuncture / Unknown 11/07/2024 12:32 AM CDT 11/07/2024 12:54 AM CDT us Obdulio Prajapati MD CHEMISTRY ORDERABLES Kellen l Result [facility] [address] [place] [address] * (ABNORMAL) CMP (Comprehensive Metabolic Panel) (11/07/2024 12:32 AM CDT) Pathologist [facility] SODIUM 140 136 - 145 mmol/L 11/07/2024 1:27 AM CDT [facility] POTASSIUM 4.0 3.5 - 5.1 mmol/L 11/07/2024 1:27 AM CDT [facility] CHLORIDE 107 98 - 107 mmol/L 11/07/2024 1:27 AM CDT [facility] CO2, VENOUS 21(L) 22 - 30 mmol/L 11/07/2024 1:27 AM CDT [facility] ANION GAP 16.0 <18.0 mmol/L 11/07/2024 1:27 AM CDT [facility] GLUCOSE 98 70 - 99 mg/dL 11/07/2024 1:27 AM CDT [facility] BUN 14 5 - 18 mg/dL 11/07/2024 1:27 AM CDT [facility] CREATININE, BLOOD 0.69 0.60 - 1.00 mg/dL 11/07/2024 1:27 AM CDT [facility] BUN/CREATININE RATIO 20 12 - 20 ratio 11/07/2024 1:27 AM CDT [facility] TOTAL PROTEIN 7.9 6.0 - 8.0 g/dL 11/07/2024 1:27 AM CDT [facility] ALBUMIN 4.1 3.5 - 5.0 g/dL 11/07/2024 1:27 AM CDT [facility] A/G RATIO 1.1 1.0 - 2.2 11/07/2024 1:27 AM CDT [facility] CALCIUM 9.2 8.7 - 10.5 mg/dL 11/07/2024 1:27 AM CDT [facility] T BILI 0.4 0.2 - 1.2 mg/dL 11/07/2024 1:27 AM CDT [facility] SGOT (AST) 32 <43 U/L 11/07/2024 1:27 AM CDT [facility] SGPT (ALT) 36 <56 U/L 11/07/2024 1:27 AM CDT [facility] ALKALINE PHOSPHATASE 79 40 - 150 U/L 11/07/2024 1:27 AM CDT [facility] GFR, ESTIMATED >60 >=60 11/07/2024 1:27 AM CDT [facility] Comment: Creatinine Clearance is the preferred criteria for selecting drug dose adjustments in renally impaired patients. The GFR is provided as additional pertinent clinical information. GFR is reported in mL/min/1.73 sq m. Calculation based on the Chronic Kidney Disease Epidemiology Collaboration (CKD- EPI) equation refit without adjustment for race. GFR, EST. >60 >=60 025 1:27 AM CDT [facility] GFR, EST. NONAFRICAN >60 >=60 11/07/2024 1:27 AM CDT [facility] Blood Venipuncture / Unknown 11/07/2024 12:32 AM CDT 11/07/2024 12:54 AM CDT us Obdulio Prajapati MD CHEMISTRY ORDERABLES Kellen l Result [facility] [address] [place] [address] * POCT Urine HCG () (11/06/2024 11:46 PM CDT) POC URINE Negative POC URINE CONTROL [employer] Pass Urine 11/06/2024 11:4 6 PM CDT Obdulio Prajapati MD POINT OF CARE TESTING (NE NUVA) Final Result * (ABNORMAL) URINALYSIS REFLEX IF INDICATED BY ABNORMAL RESULTS (11/06/2024 11:46 PM CDT) [facility] SPECIFIC GRAVITY 1.025 1.003 - 1.030 11/07/2024 12:45 AM CDT [facility] URINE PH 6.0 5.0 - 9.0 11/07/2024 12:45 AM CDT [facility] WBC ESTERASE Negative Negative 11/07/2024 12:45 AM CDT [facility] NITRITE Negative Negative 11/07/2024 12:45 AM CDT [facility] PROTEIN, RANDOM URINE 30 mg/dL(A) Negative 11/07/2024 12:45 AM CDT [facility] URINE GLUCOSE, QUAL Negative Negative 11/07/2024 12:45 AM CDT [facility] URINE KETONES Negative Negative 11/07/2024 12:45 AM CDT [facility] UROBILINOGEN Normal Normal mg/dL 11/07/2024 12:45 AM CDT [facility] URINE BLOOD Negative Negative janny/ul 11/07/2024 12:45 AM CDT [facility] URINALYSIS COLOR Yellow 11/08/19 12:45 AM CDT [facility] URINALYSIS CLARITY Clear 11/07/2024 12:45 AM CDT [facility] WBC (Urine) 0-5 Negative, 0-5 /hpf 11/07/2024 12:45 AM CDT [facility] URINE RBC'S 0-2 Negative, 0-2 /hpf 11/07/2024 12:45 AM CDT [facility] EPITHELIAL CELLS Moderate amount /lpf 11/07/2024 12:45 AM CDT [facility] BACTERIA, URINE Few(A) Negative /hpf 11/07/2024 12:45 AM CDT [facility] Urine URINE SPECIMEN OBTAINED BY CLEAN CATCH PROCEDURE / Unknown Non-Phlebotomy Collection / Unknown 11/06/2024 11:46 PM CDT 11/07/2024 12:23 AM CDT us Obdulio Prajapati MD URINE ORDERABLES Final Re sult [facility] [address] [place] [address] documented in this encounter Visit Diagnoses Not on filedocumented in this encounter Administered Medications Inactive Administered Medications - up to 3 most recent administrations Medication Order MAR Action Action Date Dose Rate Site 0.9 % sodium chloride solution at 500 mL/hr, Intravenous, ONCE, 1 dose, On 11/07/24 at 0100 New Bag 11/07/2024 12:35 AM CDT 1,000 mL 500 mL/hr fentaNYL (PF) (SUBLIMAZE) injection 75 mcg 75 mcg, Intravenous, ONCE, 1 dose, On 11/07/24 at 0200 Given 11/07/2024 2:07 AM CDT 75 mcg iopamidol (ISOVUE-370) 76 % injection 100 mL 100 mL, Intravenous, ONCE, 1 dose, On 11/07/24 at 0200 Given 11/07/2024 1:53 AM CDT 100 mL Morphine Sulfate injection 2 mg 2 mg, Intravenous, ONCE, 1 dose, On 11/07/24 at 0100 Given 11/07/2024 12:36 AM CDT 2 mg ondansetron (ZOFRAN) injection 4 mg 4 mg, Intravenous, ONCE, 1 dose, On 11/07/24 at 0100 Given 11/07/2024 12:35 AM CDT 4 mg documented in this encounter Active and Recently Administered Medications Times are shown in CDT. Scheduled Medication Order 11/05/2024 11/06/2024 11/07/2024 0.9 % sodium chloride solution (COMPLETED) at 500 mL/hr, Intravenous, ONCE, 1 dose, On 11/07/24 at 0100 0035 (New Bag - Prov ider: Autumn Craig RN)[id number] (Stopped - Provider: Autumn Craig RN) fentaNYL (PF) (SUBLIMAZE) injection 75 mcg (COMPLETED) 75 mcg, Intravenous, ONCE, 1 dose, On 11/07/24 at 0200 0207 (Given - Provid er: Autumn Craig RN) iopamidol (ISOVUE-370) 76 % injection 100 mL (COMPLETED) 100 mL, Intravenous, ONCE, 1 dose, On 11/07/24 at 0200 0153 (Given - Provid er: Carmen Short) Morphine Sulfate injection 2 mg (COMPLETED) 2 mg, Intravenous, ONCE, 1 dose, On 11/07/24 at 0100 0036 (Given - Provid er: Autumn Craig RN) ondansetron (ZOFRAN) injection 4 mg (COMPLETED) 4 mg, Intravenous, ONCE, 1 dose, On 11/07/24 at 0100 0035 (Given - Provid er: Autumn Craig RN) documented in this encounter Care Teams Hydro Operator Relationship Specialty Start Date End Date Provider, None [place] PCP - General 11/06/24 documented as of this encounter
== END 2024-11-07 02:37 | disposition left against medical advice (07) ==
LOC: ANHED 11-07 02:37
PROVIDERS: PCP Nurse Practitioner Psychiatric/Mental Health
DX: R10.9 Unspecified abdominal pain (principal)
CPT/HCPCS: 99199